=== PATIENT | female | born 1955 | race Caucasian/White ===

== ENCOUNTER 2016-06-12 09:40 | Inpatient (IN) | payer OTHER ==
[~2016-06-12] VITALS: Ht 170.2 cm; Wt 116.9 kg
--- NOTE | 2016-06-12 12:07 | DIAGNOSTIC IMAGING REPORT ---
PROCEDURE: XR CHEST 1 VIEW INDICATION: COUGH TECHNIQUE: Single view chest. 1147 hours COMPARISON: None FINDINGS: Mild patient rotation. Normal sized heart with post median sternotomy changes. Low lung volumes accentuates heart size and central vasculature. Mild peribronchial thickening. Thickening of the right minor fissure. Horizontal stranding at the left lung base. No dense consolidations. No significant effusion or pneumothorax. Intact osseous structures. IMPRESSION: 1. Peribronchial thickening and strandy left lung base opacity may reflect bronchitis, or may be accentuated secondary low lung volumes. 2. Postoperative heart.
--- NOTE | 2016-06-12 13:16 | ED ORDER SUMMARY ---
..... Patient: DAMI MEJIA OrderSheet [facility] VisitID: [id number] [address] [place] [address] 60y, F Registration Date/Time: 06/12/2016 ORDER SHEET Weight: 99.7 kg (stated) Allergies: Clonazepam, Ibuprofen GENERAL ORDERS: Chest 1V Urgent (11:06/12/2016 Rianna BONNER) (Ack 11:38 Neil) (12:17 MWinterer R.N.) Director Clinical Operations (Continuous) (:06/12/2016 Rianna BONNER) (11:32 MWinterer R.N.) UA-Culture if indicated Urgent (:06/12/2016 Rianna BONNER) (Ack 11:38 Neil) (12:07 JRomanelli R.N.) Cardiac Panel Stat (:06/12/2016 Rianna BONNER) (Ack 11:38 Neil) (12:17 MWinterer R.N.) BNP Urgent (:06/12/2016 Rianna BONNER) (Ack 11:38 Neil) (12:17 MWinterer R.N.) TSH Urgent (11:06/12/2016 Rianna BONNER) (Ack 11:38 Neil) (12:17 MWinterer R.N.) Pulse oximeter (:06/12/2016 Rianna BONNER) (11:32 MWinterer R.N.) EKG - ER Stat (:06/12/2016 Rianna BONNER) (Ack 11:32 MWinterer R.N.) (11:53 LTapper) MEDICATION ORDERS: IV FLUIDS: IV Saline Lock (11:06/12/2016 Rianna BONNER) (Ack 11:32 MWinterer R.N.) (12:17 MWinterer R.N.) Levaquin IV 500 mg/100mL (NOW) (13:08 06/12/2016 Rianna BONNER) (Ack 13:18 MWinterer R.N.) (13:34 MWinterer R.N.) Dilaudid IV 1 mg (HIGH ALERT MEDICATION, NOW) (14:47 06/12/2016 Rianna BONNER) (Ack 14:48 MWinterer R.N.) (14:52 MWinterer R.N.) ORDER SHEET NOTES: [Electronically signed by Susan Pantoja R.N. (17:49 06/12/2016)] [Electronically signed by Eloina Miller MD (04:51 06/17/2016)] [Electronically locked/signed by Susan Pantoja R.N. (17:49 06/12/2016)]
--- NOTE | 2016-06-12 13:16 | ED NURSING NOTES ---
Clinical Report - Nurses [place] [address] [place] [address] 06/12/2016 9:42 Patient: DAMI MEJIA TRIAGE Acuity: LEVEL 3. Chief Complaint: FATIGUE and VOMITING (PAIN). Alert. No acute distress. SEPSIS SCREEN: Sepsis Screen. Negative (no infection suspected/documented). BLAIR COMA SCORE: [place] Coma Scale: 15- eyes open spontaneously (4); best verbal response- oriented x 4 (5); best motor response- obeys commands (6). --09:53 Susan Pantoja R.N. 09:47 06/12/16. BP: 150/56. HR: 95. RR: 20. O2 saturation: 98% on room air. Temp: 99.9 F (oral). Pain level now: 810. --09:53 Susan Pantoja R.N. Weight: 99.7 kg stated. Height/Length: 67 inches Per Patient. BMI: 34.5. --09:53 Susan Pantoja R.N. Medications Oxybutynin Chloride ER Oral 5 mg, daily. --13:41 Susan Pantoja R.N. Copaxone Subcutaneous 40 mg , 3 x week (Mon, Wed, Fri). --13:42 Susan Pantoja R.N. NovoLOG FlexPen Subcutaneous. --13:42 Susan Pantoja R.N. Nystop External. --13:42 Susan Pantoja R.N. Omeprazole Oral 20 mg, daily. --13:43 Susan Pantoja R.N. Bisacodyl Laxative Rectal. --13:43 Susan Pantoja R.N. Calcitriol Oral (Capsule 0.25 mcg), daily. --13:44 Susan Pantoja R.N. BuPROPion HCl ER (SR) Oral 100 mg, daily. --13:45 Susan Pantoja R.N. Lantus Subcutaneous 28 units, daily. --13:46 Susan Pantoja R.N. DULoxetine HCl Oral. --13:46 Susan Pantoja R.N. HYDROmorphone HCl Oral 2 mg, as needed. --13:46 Susan Pantoja R.N. Warfarin Sodium Oral 9 mg , daily. --13:47 Susan Pantoja R.N. Ranitidine HCl Oral 150 mg, 2x a day. --13:49 Susan Pantoja R.N. Gabapentin Oral 100 mg, 3x a day. --13:49 Susan Pantoja R.N. Ondansetron HCl Oral (Tablet 4 mg), as needed. --13:51 Susan Pantoja R.N. Atorvastatin Calcium Oral 80 mg, at bedtime. --13:51 Susan Pantoja R.N. Metoprolol Tartrate Oral 25 mg, daily. --13:52 Susan Pantoja R.N. Baclofen Oral 10 mg, at bedtime. --13:53 Susan Pantoja R.N. Metoclopramide HCl Oral 5 mg, 3x a day. --13:53 Susan Pantoja R.N. Acetaminophen Oral, as needed. --13:54 Susan Pantoja R.N. Vitamin c Oral. --13:54 Susan Pantoja R.N. Aspirin Low Strength Oral, daily. --13:54 Susan Pantoja R.N. Docusate Sodium Oral. --13:55 Susan Pantoja R.N. Florastor Oral. --13:55 Susan Pantoja R.N. Multi Vitamin Daily Oral. --13:55 Susan Pantoja R.N. Senna Oral. --13:55 Susan Pantoja R.N. Tums Oral. --13:55 Susan Pantoja R.N. Vitamin B-12 Oral. --13:56 Susan Pantoja R.N. Vitamin D-3 Oral. --13:56 Susan Pantoja R.N. Allergies Clonazepam. --09:48 Susan Pantoja R.N. Ibuprofen. --09:49 Susan Pantoja R.N. History Arrived by EMS. Historian: patient. Unaccompanied. Primary physician (Yumiko). Onset. (1 weeks ago). PAST MEDICAL HX: The patient is post-menopausal. SOCIAL HX: Never smoker. No alcohol use or drug use. SKIN INTEGRITY ASSESSMENT: Skin integrity risk assessment was performed. Risk factors identified include restricted mobility. Skin breakdown noted on the coccyx and right heel. NUTRITIONAL RISK ASSESSMENT: The nutritional risk assessment revealed no deficiencies. LEARNING NEEDS ASSESSMENT: The learning needs assessment revealed no barriers. FUNCTIONAL ASSESSMENT: Functional assessment performed: requires assistance with the activities of daily living; uses wheelchair- this mobility impairment is an ongoing problem; has poor vision in both eyes and wears glasses- this visual impairment is an ongoing problem. --09:53 Susan Pantoja R.N. PROBLEMS: Multiple Sclerosis. Mitral valve disorder. Diabetes Mellitus. Hypertension. --09:50 Susan Pantoja R.N. Congestive Heart Failure. --13:57 Susan Pantoja R.N. ADDITIONAL SURGERIES: Amputation Below Knee. Gastric bypass. Mitral valuve replacement. --09:50 Susan Pantoja R.N. Assessment GENERAL / NEURO / PSYCH: Alert. Oriented X 4. Appears in no acute distress. Patient appears calm and cooperative. RESPIRATORY: Respirations not labored. CVS: Capillary refill less than 2 seconds. GI / : Abdomen soft and nontender. SKIN: Mucous membranes are pink. Skin is warm and dry. --09:53 Susan Pantoja R.N. Interventions ID band on patient. To treatment room. --09:53 Susan Pantoja R.N. PHYSICAL ASSESSMENT <<STRICKEN ENTRY-- 12:16 06/12/16. SKIN: Blisters noted on sacrum and right heel; pressure sore with damage down to fascia (Stage III) noted on sacrum; present on arrival. --12:16 Susan Pantoja R.N. --END STRIKE>> Correction --12:16 Susan Pantoja R.N. SKIN: Skin breakdown noted on sacrum; pressure sore with damage down to fascia (Stage III) noted on sacrum; present on arrival. --12:16 Susan Pantoja R.N. SKIN: Skin breakdown noted on right heel; present on arrival. --12:16 Susan Pantoja R.N. To room via stretcher. GENERAL / NEURO / PSYCH: Alert. Oriented X 4. Appears in no acute distress. HEENT: Pupils equal, round and reactive to light. No facial asymmetry noted. Mucous membranes are pink. RESPIRATORY: Respirations not labored. CVS: Normal sinus rhythm noted. Pulses within normal limits. GI / : Abdomen soft and nontender. SKIN: Skin is warm and dry. --12:17 Susan Pantoja R.N. NURSING PROGRESS NOTES Patient gowned. Warming measures: blanket applied. Two patient identifiers checked. Call light placed in reach. Side rails up x 2. Bed placed in lowest position. Brakes of bed on. Patient ready for evaluation- chart flagged and ED physician notified. --09:56 Susan Pantoja R.N. EKG time: (11:46 AM). EKG was performed by a tech and shown to the ED physician. --11:55 Eliel, Andrea 8 fr in/out catheterization. During procedure hand hygiene observed and sterile equipment and aseptic technique used. Return of 50 mL yellow-colored cloudy urine; odor is foul-smelling. Patient ID band checked for patient name and birthdate: patient confirmed. Instructions provided to collect clean catch urine and patient verbalized understanding. Catheterized urine collected with return of yellow-colored cloudy urine; sample sent to lab for urinalysis and culture. Specimen labeled in the presence of the patient. --12:04 Kenny Brothers R.N. ( pt cleanup x2 RNs X20 minutes.). --12:04 Kenny Brothers R.N. 12:12 06/12/2016 Site #1 started via IV in the right antecubital space with an 20g angiocath, with aseptic technique and good blood return; one attempt. Blood drawn: rainbow set. Labeled in the presence of the patient and sent to the lab. Saline lock flushed with 10 mL saline. --12:12 Susan Pantoja R.N. Applied clean dressing (mepilex dressing applied to sacrum). --12:15 Susan Pantoja R.N. 13:34 06/12/2016 Started 500 mg of Levaquin (Levofloxacin) IVPB in bag #1 100 mL; at 100 mL/hr over 1 hour(s) via site #1 via IV pump. Allergies verified and confirmed 5 rights. IV patency established. IV site checked: no pain, redness, or swelling. IV flushed thoroughly pre- and post-medication administration. --13:34 Susan Pantoja R.N. 14:06 06/12/16. Assisted patient with bedpan; tolerated well (x 2). --14:06 Susan Pantoja R.N. 14:13 06/12/16. BP: 121/45. HR: 90. RR: 18. O2 saturation: 96% on room air. --14:13 Susan Pantoja R.N. 14:52 06/12/2016 Dilaudid (HYDROmorphone HCl PF) IVP 1 mg given over 1 minute(s) via site #1. Allergies verified, confirmed 5 rights and sedative warning given to the patient. IV patency established. IV site checked: no pain, redness, or swelling. IV flushed thoroughly pre- and post-medication administration. IVP given by RN. --14:52 Susan Pantoja R.N. DISPOSITION / DISCHARGE 14:56 06/12/16. BP: 127/53. HR: 88. RR: 16. O2 saturation: 98% on room air. --14:58 Susan Pantoja R.N. Condition at departure: stable. Disposition: observation. Transported via stretcher by [employer]. Report was given to a nurse via a phone call. Report included patient's care, treatment, medications, reviewed medication reconcilliation, and condition (including any recent changes or anticipated changes). All questions were answered. Report was acknowledged and care was transferred. (FRANCIS De Oliveira). Patient's personal items include: glasses and cell phone; items were transported with the patient. --14:58 Susan Pantoja R.N. 14:35 06/12/2016 Levaquin IVPB Discontinued: bag #1 infused. Total amount infused: 100 mL. IV patency established. IV site checked: no pain, redness, or swelling. IV flushed thoroughly. --17:47 Susan Pantoja R.N. 15:25 06/12/2016 Site #[address] upon admission; patent and no pain. Flushed with 10 mL saline; flushes easily. --17:48 Susan Pantoja R.N. Locked/Released at 06/12/2016 17:49 by Susan Pantoja R.N.
--- NOTE | 2016-06-12 13:16 | ED CLINICAL REPORT ---
Clinical Report - Physicians/Mid Levels [facility] [address] [place] [address] 06/12/2016 9:42 Patient: DAMI MEJIA Time Seen: 10:25. Arrived- By private vehicle. Historian- patient. HISTORY OF PRESENT ILLNESS Chief Complaint: VOMITING. weakness. This started about 1 week ago and is still present and now worse. No recent travel. She has had nausea, vomiting and crampy abdominal pain. The pain is described as located in the lower abdomen. No diarrhea, black stools, bloody stools, constipation or flank pain. No history of possible bad food exposure, known contact with a sick individual or change in routine. Has not recently been camping or on antibiotics. The illness is described as moderate. (PT states she has been increasingly fatigued. She is currently living at home, and is assisted by her adult daughter, after a complicated course, following a femur fx last year. Daughter states that the pt was previously able to get herself up out of bed on her own, but now, cannot. Daughter states it is a struggle for her to get her mom up.). Similar symptoms previously: None. Recent medical care: The patient was seen recently at another facility. ( PT has been followed for ongoing issues with a nonhealing sacral ulcer.). REVIEW OF SYSTEMS No fever, muscle aches, difficulty with urination, dark urine or headache. No dizziness, sore throat, cough, chest pain or difficulty breathing. No excessive urination, skin rash, back pain, fainting episodes or blurred vision. All systems otherwise negative, except as recorded above. PAST HISTORY Problems: Congestive Heart Failure. Multiple Sclerosis. Mitral valve disorder. Diabetes Mellitus. Hypertension. Additional Surgeries: Amputation Below Knee. Gastric bypass. Mitral valuve replacement. Medications: Vitamin D-3 Oral. Vitamin B-12 Oral. Tums Oral. Senna Oral. Multi Vitamin Daily Oral. Florastor Oral. Docusate Sodium Oral. Aspirin Low Strength Oral, daily. Vitamin c Oral. Acetaminophen Oral, as needed. Metoclopramide HCl Oral 5 mg, 3x a day. Baclofen Oral 10 mg, at bedtime. Metoprolol Tartrate Oral 25 mg, daily. Atorvastatin Calcium Oral 80 mg, at bedtime. Ondansetron HCl Oral (Tablet 4 mg), as needed. Gabapentin Oral 100 mg, 3x a day. Ranitidine HCl Oral 150 mg, 2x a day. Warfarin Sodium Oral 9 mg , daily. HYDROmorphone HCl Oral 2 mg, as needed. DULoxetine HCl Oral. Lantus Subcutaneous 28 units, daily. BuPROPion HCl ER (SR) Oral 100 mg, daily. Calcitriol Oral (Capsule 0.25 mcg), daily. Bisacodyl Laxative Rectal. Omeprazole Oral 20 mg, daily. Nystop External. NovoLOG FlexPen Subcutaneous. Copaxone Subcutaneous 40 mg , 3 x week (Mon, Wed, Mon). Oxybutynin Chloride ER Oral 5 mg, daily. Allergies: Clonazepam. Ibuprofen. SOCIAL HISTORY Never smoker. No alcohol use or drug use. ADDITIONAL NOTES The nursing notes have been reviewed. PHYSICAL EXAM Vital Signs: 06/12/2016 09:47 BP: 150/56. HR: 95. RR: 20. O2 saturation: 98%. Temp: 99.9 F. Pain level now: 8/10. Have been reviewed. Appearance: Alert. Oriented X3. No acute distress. Eyes: Pupils equal, round and reactive to light. Eyes normal inspection. ENT: Nose normal. Neck: Normal inspection. Neck supple. CVS: Normal heart rate and rhythm. Heart sounds normal. Pulses normal. Respiratory: No respiratory distress. Breath sounds normal. Abdomen: Soft. Mild tenderness diffusely. No guarding or rebound tenderness. Severely obese. Back: Normal inspection. No CVA tenderness. (Pt has a weepy, somewhat foul-smelling, pre-sacral ulcer, which does not appear gangrenous. No cellulitis. No purulent drainage.). Skin: Skin warm and dry. Normal skin color. No rash. Normal skin turgor. Extremities: No lower extremity edema. Neuro: Oriented X 3. No motor deficit. No sensory deficit. LABS, X-RAYS, AND EKG Chest X-ray: No acute disease. Normal lung markings present. Normal heart size. Mediastinum normal. Great vessels normal. Soft tissues normal. No infiltrate. No fracture. No bony lesion present. Views: AP (portable). Technique: good. The X-rays were independently viewed by me and interpreted contemporaneously by me. Prior films were not available for comparison. Laboratory Tests: UA-Culture if indicated: (NIKOLAS: 06/12/2016 12:00) ( MsgRcvd 06/12/2016 12:23) Final results Test Result Flag Units (Reference) URINE COLOR YELLOW URINE APPEARANCE SL CLOUDY URINE GLUCOSE NEGATIVE (NEGATIVE) URINE BILIRUBIN NEGATIVE (NEGATIVE) URINE KETONE NEGATIVE (NEGATIVE) URINE SPECIFIC GRAVITY 1.025 (1.010-1.030) URINE PH 5.5 (5.0-8.0) URINE PROTEIN 1+ (NEGATIVE) URINE UROBILINOGEN 0.2 EU/dL (0.2-1.0) URINE NITRITE POSITIVE (NEGATIVE) URINE BLOOD 2+ (NEGATIVE) URINE LEUK ESTERASE POSITIVE (NEGATIVE) URINE RBC 1-3 rbc/hpf (0-1) URINE WBC 5-10 wbc/hpf (0-1) URINE EPITHELIAL CELLS 1-3 EPI/hpf (0-5) URINE BACTERIA MODERATE (2+ TO 3+) (NONE SEEN) URINE COMMENT CULTURE INDICATED URINE CULTURES ARE SET-UP BASED ON THE FOLLOWING CRITERIA:POSITIVE NITRITEPOSITIVE LEUKOCYTE ESTERASEGREATER THAN 10 WHITE BLOOD CELLSMODERATE (2+) OR GREATER BACTERIA CBC w Diff: (NIKOLAS: 06/12/2016 12:05) ( MsgRcvd 06/12/2016 12:40) Final results Test Result Flag Units (Reference) WHITE BLOOD COUNT 12.0 H K/uL (4.5-11.5) RED BLOOD COUNT 2.91 L M/uL (4.00-5.20) HEMOGLOBIN 8.8 L gm/dL (12.0-16.0) HEMATOCRIT 27.3 L % (36.0-46.0) MEAN CELL VOLUME 94 fL (80-100) MEAN CORPUSCULAR HGB 30 pg (26-34) MEAN CORPUSCULAR HGB CONC 32 g/dL (31-37) RED CELL DISTRIBUTION WIDTH 13.6 % (11.6-14.8) PLATELET COUNT 305 K/uL (150-400) NEUTROPHIL % 87.9 H % (50-75) LYMPH % 4.8 L % (25-40) MONO % 7.1 % (3-14) EOSINOPHIL % 0 % (0-4) BASOPHIL % 0.2 % (0-2) BNP: (NIKOLAS: 06/12/2016 12:05) ( [facility] [place]/12[place] 13:04) Final results Test Result Flag Units (Reference) B-TYPE NATRIURETIC PEPTIDE 707 H pg/ml (5-100) CHEM 13 PANEL: (NIKOLAS: 06/12/2016 12:05) ( [facility] [place] 06/12/2016 12:48) IP Test Result Flag Units (Reference) GLUCOSE 237 H mg/dL (70-110) BUN 45 H mg/dL (7-18) CREATININE 1.3 mg/dL (0.6-1.3) Estimated GFR 44.71 mL/min Estimated GFR- 54.19 mL/min Note: Persistent reduction over 3 months in eGFR<60 mL/min/1.73 m2 defines CKD. Patients with eGFR values>=60 mL/min/1.73 m2 may also have CKD if evidence ofpersistent proteinuria. Additional information may be foundat www.kidney.org. SODIUM 142 mmol/L (136-145) POTASSIUM 4.3 mmol/L (3.5-5.1) CHLORIDE 107 mmol/L (98-107) CARBON DIOXIDE 22 mmol/L (21-32) CALCIUM 8.8 mg/dL (8.5-10.1) . Pulse Oximetry: 06/12/2016 09:47 O2 saturation: 98%. Interpretation: normal. PROGRESS AND PROCEDURES Course of Care: PT was treated symptomatically, and worked up for her nausea and weakness, and found to have a UTI. Pt was started on treatment for this in the ED, but family stated they could not take her home, as they could not care for her. I did arrange for admission for the pt. Patient counseled in person regarding the patient's stable condition, test results, diagnosis and need for admission. Concerns were addressed. Old medical records reviewed. Disposition: Admitted to Acute Care. Condition: stable. CLINICAL IMPRESSION Acute urinary tract infection with cystitis. Morbid obesity (BMI >=40). Fatigue and generalized weakness, secondary to acute illness and chronic deconditioning. (Electronically signed by Eloina Miller MD 06/17/2016 4:51)
--- NOTE | 2016-06-12 13:16 | ED ORDER SUMMARY ---
..... Patient: DAMI MEJIA OrderSheet [facility] VisitID: [id number] [address] [place] [address] 60y, F Registration Date/Time: 06/12/2016 ORDER SHEET Weight: 99.7 kg (stated) Allergies: Clonazepam, Ibuprofen GENERAL ORDERS: Chest 1V Urgent (11:06/12/2016 Rianna BONNER) (Ack 11:38 Neil) (12:17 MWinterer R.N.) Local Truck [employer] (Continuous) (:06/12/2016 Rianna BONNER) (11:32 MWinterer R.N.) UA-Culture if indicated Urgent (:06/12/2016 Rianna BONNER) (Ack 11:38 Neil) (12:07 JRomanelli R.N.) Cardiac Panel Stat (:06/12/2016 Rianna BONNER) (Ack 11:38 Neil) (12:17 MWinterer R.N.) BNP Urgent (:06/12/2016 Rianna BONNER) (Ack 11:38 Neil) (12:17 MWinterer R.N.) TSH Urgent (11:06/12/2016 Rianna BONNER) (Ack 11:38 Neil) (12:17 MWinterer R.N.) Pulse oximeter (:06/12/2016 Rianna BONNER) (11:32 MWinterer R.N.) EKG - ER Stat (:06/12/2016 Rianna BONNER) (Ack 11:32 MWinterer R.N.) (11:53 LTapper) MEDICATION ORDERS: IV FLUIDS: IV Saline Lock (11:06/12/2016 Rianna BONNER) (Ack 11:32 MWinterer R.N.) (12:17 MWinterer R.N.) Levaquin IV 500 mg/100mL (NOW) (13:08 06/12/2016 Rianna BONNER) (Ack 13:18 MWinterer R.N.) (13:34 MWinterer R.N.) Dilaudid IV 1 mg (HIGH ALERT MEDICATION, NOW) (14:47 06/12/2016 Rianna BONNER) (Ack 14:48 MWinterer R.N.) (14:52 MWinterer R.N.) ORDER SHEET NOTES: [Electronically signed by Susan Pantoja R.N. (17:49 06/12/2016)] [Electronically signed by Eloina Miller MD (04:51 06/17/2016)] [Electronically locked/signed by Susan Pantoja R.N. (17:49 06/12/2016)]
--- NOTE | 2016-06-12 14:15 | History & Physical Report ---
Admission Admit Date 06/12/16 Information Source Information Source: Self, ED Record History Chief Complaint General weakness, nausea, vomiting. History of Present Illness 60yoF w/ hx of MS, CHF, DM, HTN, and LLE amputation s/p complications after surgery for a femur fracture, who presents with 1 month of worsening generalized weakness as well as 1 week of inability to tolerate PO. Patient was discharged from rehab about a month ago, and had been doing pretty well with transfers. However, she now feels that her arms and legs are weak, and she is requiring basically full assistance with transfers. She had a respiratory infection a little over a week ago w/ nonproductive cough, and she had been feeling better. However, she then developed nausea and vomiting every time she tries to eat. She has not been able to keep anything down this week. She also notes occasional bladder "spasms" over the past few days, but no abdominal pain. She also endorses feeling more "puffy" lately, and says that this is usually the first sign of a CHF exacerbation. Patient History 1. Multiple sclerosis 2. HTN (hypertension) 3. CHF (congestive heart failure) 4. Diabetes 5. Sacral decubitus ulcer 6. Status post below knee amputation of left lower extremity Social History Denies etoh, tobacco, drug use. Medications and Allergies Medications Current Medications Sig/Latonia Start time Last Medication Dose Route Stop Time Status Admin Enoxaparin Sodium 40 MG QAM 06/13 0900 UNV SC Levofloxacin/Dextrose 100 ML DAILY 06/13 0900 UNV IV Furosemide 40 MG BID 06/12 2100 UNV IV Insulin Human Lispro See Dose ACHS 06/12 1630 UNi Insts (1) SC Acetaminophen 650 MG Q6H PRN 06/12 1400 UNV PO Docusate Sodium 250 MG BID PRN 06/12 1400 UNV PO Hydromorphone HCl 1 MG Q1H PRN 06/12 1400 UNV IV Ondansetron HCl 4 MG Q6H PRN 06/12 1400 UNV IV Dose Instructions: (1)Insulin Human Lispro: LOW DOSE SLIDING SCALE Allergies Coded Allergies: NKA (06/12/16) Review of Systems Other As per HPI, rest of 10-point ROS notable for chronic presacral decubitus ulcer that she goes to wound care for. Physical Exam General Appearance Alert, Oriented X3, Cooperative, Mild distress, Morbidly obese HEENT Atraumatic, EOMI, Moist mucous membranes Lungs Diffuse expiratory wheezing, no crackles Neck Supple Cardiovascular Regular rate and rhythm, Normal S1 and S2, No murmurs, gallops, rubs Abdomen Normal bowel sounds, Soft, No tenderness Extremities 1+ LE edema in RLE. Skin sacral decubitus ulcer bandaged Neurological cn intact, strength 5/5 in all extremities except for knee flexion in RLE which was 4-/5. Sensation intact throughout. Psych/Mental Status Mental status normal, Tearful LAB Results Laboratory Tests 06/12 06/12 06/12 1205 1205 1200 Chemistry Plasma Sodium (136 - 145 mmol/L) 142 Plasma Potassium (3.5 - 5.1 mmol/L) 4.3 Plasma Chloride (98 - 107 mmol/L) 107 CO2 (Enzymatic) (21 - 32 mmol/L) 22 BUN (7 - 18 mg/dL) 45 Creatinine (0.6 - 1.3 mg/dL) 1.3 Est GFR ( Amer) (mL/min) 54.19 Est GFR (Non-Af Amer) (mL/min) 44.71 Glucose (70 - 110 mg/dL) 237 Plasma Calcium (8.5 - 10.1 mg/dL) 8.8 Plasma Magnesium (1.8 - 2.4 mg/dL) 1.7 Total Bilirubin (0.0 - 1.0 mg/dL) 0.3 AST (15 - 37 U/L) 29 ALT (12 - 78 U/L) 20 Alkaline Phosphatase (46 - 116 U/L) 84 Creatine Kinase (24 - 260 U/L) 326 CK-MB (CK-2) (0.5 - 3.2 ng/mL) 1.8 CK/CKMB % Calc (0.0 - 4.0 %) 0.6 Troponin (0.00 - 1.5 ng/mL) <0.05 B-Natriuretic Peptide (5 - 100 pg/ml) 707 Total Protein (6.4 - 8.2 g/dL) 6.5 Albumin (3.3 - 5.0 g/dL) 2.3 TSH 3rd Generation (0.30 - 3.74 uIU/mL) 1.025 Hematology WBC (4.5 - 11.5 K/uL) 12.0 RBC (4.00 - 5.20 M/uL) 2.91 Hgb (12.0 - 16.0 gm/dL) 8.8 Hct (36.0 - 46.0 %) 27.3 MCV (80 - 100 fL) 94 MCH (26 - 34 pg) 30 RDW (11.6 - 14.8 %) 13.6 Neut % (Auto) (50 - 75 %) 87.9 Lymph % (Auto) (25 - 40 %) 4.8 [place] % (Auto) (3 - 14 %) 7.1 Eos % (Auto) (0 - 4 %) 0 Baso % (Auto) (0 - 2 %) 0.2 Plt Count, EDTA (150 - 400 K/uL) 305 PUBS MCHC (31 - 37 g/dL) 32 Urines Urine Color YELLOW Urine Appearance SL CLOUDY Urine pH (5.0 - 8.0) 5.5 Ur Specific [place] (1.010 - 1.030) 1.025 Urine Protein (NEGATIVE) 1+ Urine Ketones (NEGATIVE) NEGATIVE Urine Blood (NEGATIVE) 2+ Urine Nitrite (NEGATIVE) POSITIVE Urine Bilirubin (NEGATIVE) NEGATIVE Urine Urobilinogen (0.2 - 1.0 EU/dL) 0.2 Ur Leukocyte Esterase (NEGATIVE) POSITIVE Urine RBC (0 - 1 rbc/hpf) 1-3 Urine WBC (0 - 1 wbc/hpf) 5-10 Ur Epithelial Cells (0 - 5 EPI/hpf) 1-3 Urine Bacteria (NONE SEEN) MODERATE (2+ TO 3+) Urine Glucose (NEGATIVE) NEGATIVE Urine Comment CULTURE INDICATED 06/12 1126 Chemistry TSH 3rd Generation Cancelled Microbiology Date/Time Procedure - Status Source Growth 06/12 1200 Urine Culture - RECD URINE CATH Assessment and Plan Problem List 1. UTI (urinary tract infection) Plan Will continue on levaquin (day 1). Will follow up urine culture for speciation and sensitivities. 2. Acute decompensated heart failure Plan Slightly fluid overload, and does state that these symptoms are c/w previous exacerbations. Will place on IV lasix, w/ goal -500-1000cc in next 24hrs. Unclear if patient has systolic or diastolic dysfunction as there are no records in our system. 3. Acute bronchitis Plan CXR noting evidence of peribronchial thickening in L lung base. Did have recent viral infection, but should be covered with the levaquin as well. 4. Generalized weakness Plan Unclear if this is due to her current UTI, which may be causing her nausea/ vomiting and inability to take PO. Will place on PRN zofran and start with clear liquids. Will monitor for improvement in her PO intake. If still having issues despite adequate treatment of her infection, may consider gastric emptying study due to her diabetes history. In addition, her exam does not seem c/w an MS flare, and she likely has some deconditioning. Will consult PT as well to evaluate the patient. 5. Multiple sclerosis Plan Does not appear to be in an acute flare. Is followed by a Dr. Cruz at [facility]. Reconciling medications at this time. 6. Sacral decubitus ulcer Plan Will consult wound care. 7. HTN (hypertension) Plan Patient does not recall home medications. Trying to obtain list from pharmacy. 8. Diabetes Plan Will place on SSI for now until meds can be reconciled with her pharmacy. FEN: clears, and will ADAT PPx: lovenox Code: DNR/DNI, per discussion w/ patient in ED Dispo: Inpatient for above, as will likely require >2MN hospital stay. PT consulted, as she may require another stay in rehab when medically stable. E&M Codes Admission: Inpt-High/[id number]
[2016-06-12] MEDS ORDERED: [UNRECOGNIZED DRUG - OTHER] (14:59)
[2016-06-12] MEDS ORDERED: LIPITOR80 MG PO (14:59)
[2016-06-12] MEDS ORDERED: ASPIRIN 81 LOW81 MG PO (14:59)
[2016-06-12] MEDS ORDERED: BACLOFEN10 MG PO (15:00)
[2016-06-12] MEDS ORDERED: BISACODYL5 MG (15:00)
[2016-06-12] MEDS ORDERED: BUPROPION HCL100 M2 PO (15:00)
[2016-06-12] MEDS ORDERED: CALCITRIOL0.25 MCG PO (15:01)
[2016-06-12] MEDS ORDERED: COPAXONE20 MG/ML SC (15:02)
[2016-06-12] MEDS ORDERED: FLORASTOR250 MG (15:03)
[2016-06-12] MEDS ORDERED: [UNRECOGNIZED DRUG - OTHER] (15:03)
[2016-06-12] MEDS ORDERED: CYMBALTA20 MG PO (15:03)
[2016-06-12] MEDS ORDERED: GABAPENTIN100 MG (15:04)
[2016-06-12] MEDS ORDERED: HYDROMORPHONE HC2 MG PO (15:04)
[2016-06-12] MEDS ORDERED: LANTUS SOL100 UNITS/ SC (15:05)
[2016-06-12] MEDS ORDERED: METOCLOPRAMIDE10 MG PO (15:06)
[2016-06-12] MEDS ORDERED: LOPRESSOR25 MG PO (15:06)
[2016-06-12] MEDS ORDERED: [UNRECOGNIZED DRUG - OTHER] (15:07)
[2016-06-12] MEDS ORDERED: NYSTOP100000 MG TOP (15:07)
[2016-06-12] MEDS ORDERED: NOVOLOG PE100 UNITS/ (15:07)
[2016-06-12] MEDS ORDERED: OMEPRAZOLE20 M1 (15:08)
[2016-06-12] MEDS ORDERED: ONDANSETRON ODT4 MG PO (15:08)
[2016-06-12] MEDS ORDERED: OXYBUTYNIN CHLOR5 M1 PO (15:09)
[2016-06-12] MEDS ORDERED: [UNRECOGNIZED DRUG - OTHER] (15:09)
[2016-06-12] MEDS ORDERED: SENNA-LAX8.6 MG PO (15:09)
[2016-06-12] MEDS ORDERED: VITAMIN C500 M1 PO (15:10)
[2016-06-12] MEDS ORDERED: TUMS500 MG (15:10)
[2016-06-12] MEDS ORDERED: VITAMIN B 12100 MCG (15:10)
[2016-06-12] MEDS ORDERED: COUMADIN5 MG PO (15:11)
[2016-06-12] MEDS ORDERED: VITAMIN D-31000 UNIT PO (15:11)
[2016-06-12 16:35] VITALS: BP 125/59
[2016-06-12] MEDS ORDERED: BUMETANIDE1 MG PO (18:36)
[2016-06-12 18:57] VITALS: BP 126/39
[2016-06-12 23:00] VITALS: BP 95/50
[2016-06-13 02:32] VITALS: BP 121/45
[2016-06-13 07:16] VITALS: BP 159/59
--- NOTE | 2016-06-13 10:32 | Progress Note ---
Subjective General Feels a little bit better today. No emesis in the past 24hrs. Did ok with liquids last night, and trying soft foods this morning. States she just does not have much of an appetite, but is not necessarily nauseated at this time. No fevers. Physical Exam Vital Signs / I&Os Vital Signs Date Time Temp Pulse Resp B/P Pulse O2 O2 Flow FiO2 Ox Delivery Rate 06/13 0716 100.2 97 26 159/59 92 Room Air 0.0 06/13 0232 100.0 86 20 121/45 93 Room Air 06/12 2300 99.7 83 20 95/50 95 Room Air 06/12 1857 98.8 92 20 126/39 96 Room Air 06/12 1635 98.8 87 20 125/59 97 Room Air I&O 06/13 0000 06/12 1600 06/12 0800 Intake Total Output Total Balance General Appearance Alert, Oriented X3, Cooperative, No acute distress, Obese HEENT Moist mucous membranes Lungs Still with some expiratory wheezing, improved from yesterday. No crackles. Neck Supple Cardiovascular Regular rate and rhythm, Normal S1 and S2, Audible mechanical valve, even w/o stethoscope. Abdomen Normal bowel sounds, Soft, No tenderness Extremities 1+ RLE swelling Skin No Rashes Neurological No lateralizing signs Psych/Mental Status Mental status normal, Mood normal LAB Results Laboratory Tests 06/13 06/12 06/12 06/12 0548 1715 1205 1205 Chemistry Plasma Sodium (136 - 145 mmol/L) 144 142 Plasma Potassium (3.5 - 5.1 mmol/L) 4.5 4.3 Plasma Chloride (98 - 107 mmol/L) 111 107 CO2 (Enzymatic) (21 - 32 mmol/L) 25 22 BUN (7 - 18 mg/dL) 40 45 Creatinine (0.6 - 1.3 mg/dL) 1.3 1.3 Est GFR ( Amer) (mL/min) 54.19 54.19 Est GFR (Non-Af Amer) (mL/min) 44.71 44.71 Glucose (70 - 110 mg/dL) 167 237 Plasma Calcium (8.5 - 10.1 mg/dL) 8.5 8.8 Plasma Magnesium (1.8 - 2.4 mg/dL) 1.7 1.7 Total Bilirubin (0.0 - 1.0 mg/dL) 0.3 AST (15 - 37 U/L) 29 ALT (12 - 78 U/L) 20 Alkaline Phosphatase (46 - 116 U/L) 84 Creatine Kinase (24 - 260 U/L) 326 CK-MB (CK-2) (0.5 - 3.2 ng/mL) 1.8 CK/CKMB % Calc (0.0 - 4.0 %) 0.6 Troponin (0.00 - 1.5 ng/mL) <0.05 B-Natriuretic Peptide (5 - 100 pg/ml) 707 Total Protein (6.4 - 8.2 g/dL) 6.5 Albumin (3.3 - 5.0 g/dL) 2.3 TSH 3rd Generation (0.30 - 3.74 uIU/mL) 1.025 Coagulation INR (0.8 - 1.2) 2.8 2.3 Hematology WBC (4.5 - 11.5 K/uL) 11.7 12.0 RBC (4.00 - 5.20 M/uL) 2.48 2.91 Hgb (12.0 - 16.0 gm/dL) 7.4 8.8 Hct (36.0 - 46.0 %) 23.1 27.3 MCV (80 - 100 fL) 93 94 MCH (26 - 34 pg) 30 30 RDW (11.6 - 14.8 %) 13.6 13.6 Neut % (Auto) (50 - 75 %) 87.4 87.9 Lymph % (Auto) (25 - 40 %) 5.8 4.8 [place] % (Auto) (3 - 14 %) 6.7 7.1 Eos % (Auto) (0 - 4 %) 0 0 Baso % (Auto) (0 - 2 %) 0.1 0.2 Plt Count, EDTA (150 - 400 K/uL) 211 305 PUBS MCHC (31 - 37 g/dL) 32 32 06/12 06/12 1200 1126 Chemistry TSH 3rd Generation Cancelled Urines Urine Color YELLOW Urine Appearance SL CLOUDY Urine pH (5.0 - 8.0) 5.5 Ur Specific [place] (1.010 - 1.030) 1.025 Urine Protein (NEGATIVE) 1+ Urine Ketones (NEGATIVE) NEGATIVE Urine Blood (NEGATIVE) 2+ Urine Nitrite (NEGATIVE) POSITIVE Urine Bilirubin (NEGATIVE) NEGATIVE Urine Urobilinogen (0.2 - 1.0 EU/dL) 0.2 Ur Leukocyte Esterase (NEGATIVE) POSITIVE Urine RBC (0 - 1 rbc/hpf) 1-3 Urine WBC (0 - 1 wbc/hpf) 5-10 Ur Epithelial Cells (0 - 5 EPI/hpf) 1-3 Urine Bacteria (NONE SEEN) MODERATE (2+ TO 3+) Urine Glucose (NEGATIVE) NEGATIVE Urine Comment CULTURE INDICATED Microbiology Date/Time Procedure - Status Source Growth 06/12 1650 MRSA Screen - RECD NASAL 06/12 1200 Urine Culture - RECD URINE CATH Assessment and Plan Problem List 1. UTI (urinary tract infection) Plan Continuing levaquin (day 2) and will follow up culture. Will see if this helps improve her nausea and appetite. 2. Acute decompensated heart failure Plan Patient incontinent of urine, which make monitoring her diuresis a bit difficult. Symptoms a bit better today with lasix IV yesterday. Will continue for now, and will monitor by symptoms as I do not want to place a osborne due to her UTI. 3. Acute bronchitis Plan Continuing on levaquin as well, based on CXR results on admission. 4. Generalized weakness Plan Energy feels a little bit better, so may be related to the UTI. Will have PT evaluate her. 5. Multiple sclerosis Plan Not in an acute flare. Continue her glatiramer 3x/week. 6. Sacral decubitus ulcer Plan Continue wound care. 7. Diabetes Plan Continue 1/2 dose lantus +SSI and titrate as needed. 8. Chronic pain Plan Continuing home cymbalta, baclofen, gabapentin. 9. Depression Plan Continue bupropion. 10. GERD (gastroesophageal reflux disease) Plan Continue PPI and H2 adi. 11. H/O mitral valve replacement with mechanical valve Plan Continue coumadin w/ INR goal 2.5-3.5. FEN: ADAT PPx: on coumadin Code: DNR/DNI Dispo: Pending ability to reliably tolerate PO and PT eval for dispo assistance. E&M Codes Rounding: Inpt-High/[id number]
[2016-06-13 11:19] VITALS: BP 134/59
[2016-06-13 14:50] VITALS: BP 132/60
--- NOTE | 2016-06-13 16:17 | CONSULTATION REPORT ---
DATE OF CONSULTATION: 06/13/2016 CHIEF COMPLAINT: 1. Pressure ulcer, presacral HISTORY OF PRESENT ILLNESS: The patient is a 60-year-old woman who was just admitted to the hospital by the medicine service. She was noted to have a foul-smelling exudate from her presacral region and was found to have a necrotic pressure ulcer. Consultation was obtained for helping to manage the wound. This patient has a past medical history of multiple sclerosis and general weakness, CHF, diabetes, hypertension, and has had a left lower extremity amputation for complications following surgery for a femur fracture. On this occasion, she was admitted and found to have a UTI and pneumonia, as well as the pressure ulcer in question. She has longstanding bladder problems. MEDICAL/SURGICAL HISTORY: Medical history: Diseases mentioned above. MEDICATIONS: 1. Enoxaparin 2. Levofloxacin 3. Lasix 4. Human insulin 5. Acetaminophen 6. DOS 7. Hydromorphone 8. Ondansetron ALLERGIES: 1. NONE TO MEDICATIONS. SOCIAL HISTORY: The patient does not drink or smoke cigarettes. FAMILY HISTORY: No specific hereditary diseases are noted. REVIEW OF SYSTEMS: A review of systems was obtained on admission yesterday by the internal medicine service, covering at least 10 points. PHYSICAL EXAMINATION: GENERAL: The patient was alert and cooperative. VITAL SIGNS: Her most recent vital signs: Temperature 98.6, pulse 78, blood pressure 132/60, respirations 20. GENERAL: The patient appeared alert and cooperative and was conversant. HEENT: Her ears and nose demonstrated no gross external lesions. Eyes were equal. There is no obvious icterus. NECK: Without palpable masses. BUTTOCKS: Her bottom and was examined. She does have pain in this area and sensation. There is necrotic opening, about 2 x 3 cm, in the presacral region, with foul- smelling serous drainage. There is also induration, especially in the right gluteal crease. There is no crepitus. There is moderate erythema. LAB/IMAGING: Her lab tests show a white count of 11.7, which was 12 yesterday. Coag studies: INR of 2.8. Glucose 237 yesterday and 167 today. IMPRESSION: 1. Presacral pressure ulcer 2. Sensory neuropathy PLAN: I recommended the patient undergo a bedside opening, excisional debridement. She was already being followed in Wound Care and will be followed up further there, depending on what the findings are. PROCEDURE: Incision, drainage, and debridement of presacral pressure ulcer. The wound was treated at the bedside. No injectable anesthetics were used, and the patient had some discomfort with opening up loculations, but otherwise did fine. The patient was rolled in the left lateral decubitus position and a Q-tip inserted until a deeper cavity was found, with some return of purulent and serous fluid. A disposable scissors as well as scalpel blade were used to excise a plug of necrotic, foul- smelling skin and full-thickness subcutaneous tissue, which allowed entrance to the openings. Digital dilation was used to break up loculations, both on the right and the left side. There was no ongoing bleeding, and the wound was packed with plain gauze on both sides and t.i.d. moist saline dressings were ordered. This represents excisional debridement of both skin and subcutaneous tissue in a wound externally measuring about 2 x 3 cm and internally tunneling at least 4 cm.
[2016-06-13 19:06] VITALS: BP 125/66
[2016-06-13 22:32] VITALS: BP 150/56
[2016-06-14] VITALS (7 sets, daily range): BP systolic 114–134; BP diastolic 48–77
--- NOTE | 2016-06-14 08:47 | Progress Note ---
Subjective General Note Date: June 14, 2016 Admission Date: June 13, 2016 Hospital Day: 2 PCP: None Status: Inpatient Advanced Directive: NO CODE Room: 208 Brief History: The patient is a 60-year-old white female with a significant past medical history of multiple sclerosis, hypertension, diabetes mellitus, who presented to [facility] emergency department on the day of admission secondary to complaints of generalized weakness nausea and vomiting. ER evaluation was consistent with UTI , bronchitis, and sacral decubitus ulcer. Secondary to the above, the patient was admitted by Ana Vang M.D. for further evaluation and treatment. For other history present illness, past medical history, family history, social history, review of systems, and admission physical examination please see the patient's history and physical examination and ER visit note in the patient's medical record. Subjective: The patient states she is doing somewhat better today. Persistent generalized weakness. No specific complaints or requests at this time Patient requests: None Medications and Allergies Medications Current Medications Sig/Lat[place] Start time Last Medication Dose Route Stop Time Status Admin Zinc Sulfate 220 MG QAM 06/14 899 AC 06/14 PO 0815 Clarify Med Order See Dose ASDIRECTED 06/13 1245 AC Insts (1) PO Ascorbic Acid 500 MG DAILY 06/13 899 AC 06/14 PO 0815 Aspirin 81 MG DAILY 06/13 899 AC 06/14 PO 0815 Calcitriol 0.25 MCG DAILY 06/13 899 AC 06/14 PO 0815 Cholecalciferol 1,000 UNIT DAILY 06/13 09 AC 06/14 PO 0815 Duloxetine HCl 30 MG DAILY 06/13 09 AC 06/14 PO 0815 Insulin Glargine 15 UNITS DAILY 06/13 09 AC 06/14 SC 0815 Levofloxacin/Dextrose 100 ML DAILY 06/13 09 AC 06/13 IV 0938 Oxybutynin Chloride 5 MG DAILY 06/13 09 AC 06/14 PO 0815 Patient Own See Dose MoWeFr 06/13 09 AC 06/13 Medication Insts (2) SC 0938 Senna 1 TAB DAILY 06/13 09 AC 06/14 PO 0815 Clarify Med Order See Dose ASDIRECTED 06/13 08 AC Insts (3) PO Clotrimazole See Dose QID 06/13 06 AC 06/14 Insts (4) TOP 0546 Pantoprazole Sodium 40 MG DAILY@0600 06/13 0600 AC 06/14 Sesquihydrate PO 0546 Gabapentin 100 MG TID 06/12 2200 AC 06/14 PO 0546 Baclofen 10 MG BID 06/12 2100 AC 06/14 PO 0815 Bupropion HCl 100 MG BID 06/12 2100 AC 06/14 PO 0815 Famotidine 20 MG DAILY 06/12 2100 AC 06/14 PO 0815 Metoclopramide HCl 5 MG ACHS 06/12 2100 AC 06/14 PO 0808 Warfarin Sodium 4 MG 1400 06/12 2000 AC 06/13 PO 1451 Warfarin Sodium 5 MG 1400 06/12 2000 AC 06/13 PO 1451 Atorvastatin Calcium 80 MG QPM 06/12 1800 AC 06/13 PO 1823 Furosemide 40 MG DIUB 06/12 1800 AC 06/14 IV 0547 Metoprolol Tartrate 25 MG DAILY 06/12 1800 AC 06/14 PO 0815 Insulin Human Lispro See Dose ACHS 06/12 1630 AC 06/14 Insts (5) SC 0814 Acetaminophen 650 MG Q6H PRN 06/12 1400 AC 06/14 PO 0808 Docusate Sodium 250 MG BID PRN 06/12 1400 AC 06/12 PO 2059 Hydromorphone HCl 1 MG Q1H PRN 06/12 1400 AC 06/13 IV 1551 Ondansetron HCl 4 MG Q6H PRN 06/12 1400 AC 06/13 IV 0659 Dose Instructions: (1)Clarify Med Order: WARFARIN PER PHARM (2)Patient Own Medication: GLATIRAMER 40 MG (3)Clarify Med Order: PT MEDS IN PSB (OMNICELL) (4)Clotrimazole: APPLY TO AFFECTED AREA (5)Insulin Human Lispro: LOW DOSE SLIDING SCALE Allergies Coded Allergies: Clonazepam (06/12/16) Ibuprofen (06/12/16) Lactose Intolerance (GI) (06/13/16) Physical Exam Vital Signs / I&Os Vital Signs Date Time Temp Pulse Resp B/P Pulse O2 O2 Flow FiO2 Ox Delivery Rate 06/14 0641 98.8 81 18 134/65 93 Room Air 06/14 0320 98.4 81 20 120/48 93 Room Air 06/14 0202 Room Air 06/14 0033 101.1 06/13 2231 102.7 99 20 150/56 100 Room Air 06/13 1906 98.4 94 20 125/66 96 06/13 1450 98.6 78 20 132/60 97 Room Air 06/13 1119 97.5 69 20 134/59 95 Room Air 0.0 I&O 06/14 0000 06/13 1600 06/13 0800 Intake Total 200 810 Output Total 725 464 763 Balance -525 346 -763 General Appearance Alert, Cooperative, No acute distress Lungs Scattered rhonchi, no rales Cardiovascular Regular rate and rhythm, Normal S1 and S2 Abdomen Normal bowel sounds, Soft, No tenderness Extremities No cyanosis, No clubbing, edema unchanged Psych/Mental Status Mental status normal, Mood normal LAB Results Laboratory Tests 06/14 06/14 06/13 0520 0505 2325 Chemistry Plasma Sodium (136 - 145 mmol/L) 144 Plasma Potassium (3.5 - 5.1 mmol/L) 4.0 Plasma Chloride (98 - 107 mmol/L) 111 CO2 (Enzymatic) (21 - 32 mmol/L) 23 BUN (7 - 18 mg/dL) 42 Creatinine (0.6 - 1.3 mg/dL) 1.4 Est GFR ( Amer) (mL/min) 49.75 Est GFR (Non-Af Amer) (mL/min) 41.05 Glucose (70 - 110 mg/dL) 168 Plasma Calcium (8.5 - 10.1 mg/dL) 8.0 Plasma Magnesium (1.8 - 2.4 mg/dL) 1.6 Coagulation INR (0.8 - 1.2) 4.4 Hematology WBC (4.5 - 11.5 K/uL) 10.2 RBC (4.00 - 5.20 M/uL) 2.48 Hgb (12.0 - 16.0 gm/dL) 7.5 Cancelled 9.0 Hct (36.0 - 46.0 %) 23.3 Cancelled 28.7 MCV (80 - 100 fL) 94 MCH (26 - 34 pg) 30 RDW (11.6 - 14.8 %) 13.6 Neut % (Auto) (50 - 75 %) 85.7 Lymph % (Auto) (25 - 40 %) 6.9 [place] % (Auto) (3 - 14 %) 7.2 Eos % (Auto) (0 - 4 %) 0 Baso % (Auto) (0 - 2 %) 0.2 Plt Count, EDTA (150 - 400 K/uL) 241 PUBS MCHC (31 - 37 g/dL) 32 Assessment and Plan Problem List 1. UTI (urinary tract infection) Plan -Awaiting final urine C&S -continue Levaquin. 2. Generalized weakness Plan -persistent weakness but improved -Monitor 3. Acute bronchitis Plan -patient with mild cough -No significant wheezing/shortness of breath -Monitor 4. Multiple sclerosis Plan -stable -Continue present therapy -Monitor 5. Sacral decubitus ulcer Plan -await final wound C&S -Continue present antimicrobial therapy -Follow up with surgery -Monitor 6. HTN (hypertension) Plan -stable -Blood pressure well controlled -Monitor 7. CHF (congestive heart failure) Plan -stable -Continue present therapy -Low salt diet 8. Diabetes 9. Chronic anticoagulation Status Chronic Onset Date Unknown Plan -INR elevated -Hold Coumadin. -Monitor 10. Anemia Status Acute Onset Date Unknown Plan -patient with mild anemia -Check iron studies, B12, folate, reticulocyte count -monitor -Transfusion as necessary 11. Mitral valve disease Status Chronic Onset Date Unknown Plan -stable -Continue anticoagulation, hold today secondary to elevated INR Current status: Fair, unstable Anticipated discharge date: Anticipated discharge in 2-3 days Anticipated discharge placement: home Patient care time: Time spent in chart review, patient interview, physical exam, CPOE, and care documentation: 25 minutes Visit to patient today: 2 Complexity of care: Moderate E&M Codes Rounding: Inpt-High/[id number]
[2016-06-15] VITALS (7 sets, daily range): BP systolic 131–153; BP diastolic 61–73
--- NOTE | 2016-06-15 12:57 | Progress Note ---
Subjective General No new complaints, she has buttock soreness and drainage. Physical Exam Vital Signs / I&Os Vital Signs Date Time Temp Pulse Resp B/P Pulse O2 O2 Flow FiO2 Ox Delivery Rate 06/15 1038 98.8 70 18 145/68 96 Room Air 06/15 0649 99.1 90 18 145/64 96 Room Air 0.0 06/15 0244 98.4 89 18 131/67 96 Room Air 06/15 0045 Room Air 06/14 2302 98.8 73 18 124/56 96 Room Air 06/14 1818 98.1 94 18 131/60 100 06/14 1426 98.1 67 18 114/67 98 I&O 06/14 0800 06/14 1600 06/15 0000 Intake Total 120 360 240 Output Total 350 1100 650 Balance -230 -740 -410 General Appearance Alert Other the presacral area shows an additional area of necrosis which I opened up more to promote drainage. Assessment and Plan Problem List 1. Sacral decubitus ulcer Plan continue off loading, packing, antibiotics Pt. needs to be debrided in the OR tommorow as I can not adequately clean up the necrotic tissue at the bedside.
--- NOTE | 2016-06-15 15:50 | Progress Note ---
Subjective General Note Date: June 15, 2016 Admission Date: June 14, 2016 Hospital Day: 3 PCP: None Status: Inpatient Advanced Directive: NO CODE Room: 208 Brief History: The patient is a 60-year-old white female with a significant past medical history of multiple sclerosis, hypertension, diabetes mellitus, who presented to [facility] emergency department on the day of admission secondary to complaints of generalized weakness nausea and vomiting. ER evaluation was consistent with UTI , bronchitis, and sacral decubitus ulcer. Secondary to the above, the patient was admitted by Ana Vang M.D. for further evaluation and treatment. For other history present illness, past medical history, family history, social history, review of systems, and admission physical examination please see the patient's history and physical examination and ER visit note in the patient's medical record. Subjective: The patient states she is doing somewhat better today. Persistent generalized weakness. No specific complaints or requests at this time. Eating poorly. No nausea or vomiting. Patient requests: None Medications and Allergies Medications Current Medications Sig/Latonia Start time Last Medication Dose Route Stop Time Status Admin Albuterol/Ipratropium 3 ML RTQ6H 06/15 1400 AC 06/15 IN 1405 Ertapenem 1,000 MG 1300 06/15 1300 AC 06/15 Sodium Chloride 50 ML IV 1240 Albuterol Sulfate 2.5 MG RTQ3H PRN 06/14 1915 AC IN Zinc Sulfate 220 MG QAM 06/14 0900 AC 06/15 PO 0918 Clarify Med Order See Dose ASDIRECTED 06/13 1245 AC Insts (1) PO Ascorbic Acid 500 MG DAILY 06/13 899 AC 06/15 PO 0918 Aspirin 81 MG DAILY 06/13 899 AC 06/15 PO 0918 Calcitriol 0.25 MCG DAILY 06/13 899 AC 06/15 PO 0918 Cholecalciferol 1,000 UNIT DAILY 06/13 899 AC 06/15 PO 0918 Duloxetine HCl 30 MG DAILY 06/13 899 AC 06/15 PO 0918 Insulin Glargine 15 UNITS DAILY 06/13 899 AC 06/15 SC 0918 Oxybutynin Chloride 5 MG DAILY 06/13 899 AC 06/15 PO 0918 Patient Own See Dose MoWeFr 06/13 899 AC 06/15 Medication Insts (2) SC 0918 Senna 1 TAB DAILY 06/13 899 AC 06/15 PO 0918 Clarify Med Order See Dose ASDIRECTED 06/13 0800 AC Insts (3) PO Clotrimazole See Dose QID 06/13 0600 AC 06/15 Insts (4) TOP 1240 Pantoprazole Sodium 40 MG DAILY@0600 06/13 0600 AC 06/15 Sesquihydrate PO 0543 Gabapentin 100 MG TID 06/12 2200 AC 06/15 PO 1355 Baclofen 10 MG BID 06/12 2100 AC 06/15 PO 0918 Bupropion HCl 100 MG BID 06/12 2100 AC 06/15 PO 0918 Famotidine 20 MG DAILY 06/12 2100 AC 06/15 PO 0918 Atorvastatin Calcium 80 MG QPM 06/12 1800 AC 06/14 PO 1859 Furosemide 40 MG DIUB 06/12 1800 AC 06/15 IV 0544 Metoprolol Tartrate 25 MG DAILY 06/12 1800 AC 06/15 PO 0918 Insulin Human Lispro See Dose ACHS 06/12 1630 AC 06/15 Insts (5) SC 1138 Acetaminophen 650 MG Q6H PRN 06/12 1400 AC 06/14 PO 0808 Docusate Sodium 250 MG BID PRN 06/12 1400 AC 06/15 PO 0543 Hydromorphone HCl 1 MG Q1H PRN 06/12 1400 AC 06/15 IV 1240 Ondansetron HCl 4 MG Q6H PRN 06/12 1400 AC 06/13 IV 0659 Dose Instructions: (1)Clarify Med Order: WARFARIN PER PHARM (2)Patient Own Medication: GLATIRAMER 40 MG (3)Clarify Med Order: PT MEDS IN PSB (OMNICELL) (4)Clotrimazole: APPLY TO AFFECTED AREA (5)Insulin Human Lispro: LOW DOSE SLIDING SCALE Allergies Coded Allergies: Clonazepam (06/12/16) Ibuprofen (06/12/16) Lactose Intolerance (GI) (06/13/16) Physical Exam Vital Signs / I&Os Vital Signs Date Time Temp Pulse Resp B/P Pulse O2 O2 Flow FiO2 Ox Delivery Rate 06/15 1425 99.0 92 18 136/68 98 Room Air 06/15 1038 98.8 70 18 145/68 96 Room Air 06/15 0649 99.1 90 18 145/64 96 Room Air 0.0 06/15 0244 98.4 89 18 131/67 96 Room Air 06/15 0045 Room Air 06/14 2302 98.8 73 18 124/56 96 Room Air 06/14 1818 98.1 94 18 131/60 100 I&O 06/15 0000 06/14 1600 06/14 0800 Intake Total 240 360 120 Output Total 650 1100 350 Balance -410 -740 -230 General Appearance Alert, Cooperative, No acute distress Lungs Scattered rhonchi, minimal expiratory wheezes. Cardiovascular Regular rate and rhythm, valve click unchanged. Abdomen Normal bowel sounds, Soft, No tenderness Extremities No cyanosis, No clubbing, BKA present. Neurological Generalized weakness. Psych/Mental Status Mood normal, Confused LAB Results Laboratory Tests 06/15 06/15 06/14 06/14 06/14 0955 0550 1707 1707 1707 Chemistry Plasma Sodium (136 - 145 mmol/L) 148 Plasma Potassium (3.5 - 5.1 mmol/L) 3.8 Plasma Chloride (98 - 107 mmol/L) 113 CO2 (Enzymatic) (21 - 32 mmol/L) 27 BUN (7 - 18 mg/dL) 40 Creatinine (0.6 - 1.3 mg/dL) 1.3 Est GFR ( Amer) (mL/min) 54.19 Est GFR (Non-Af Amer) (mL/min) 44.71 Glucose (70 - 110 mg/dL) 145 Plasma Calcium (8.5 - 10.1 mg/dL) 8.4 Plasma Magnesium (1.8 - 2.4 mg/dL) 1.6 Iron (35 - 150 ug/dL) 13 TIBC (260 - 445 ug/dL) 115 Iron Saturation (15 - 50 %) 11 B-Natriuretic Peptide (5 - 100 pg/ml) 733 Vitamin B12 (211 - 946 pg/mL) 1932 Folate (>3.0 ng/mL) 19.3 Coagulation INR (0.8 - 1.2) 5.6 Hematology WBC (4.5 - 11.5 K/uL) 11.0 RBC (4.00 - 5.20 M/uL) 2.76 Hgb (12.0 - 16.0 gm/dL) 8.2 7.9 Hct (36.0 - 46.0 %) 25.7 24.2 MCV (80 - 100 fL) 93 MCH (26 - 34 pg) 30 RDW (11.6 - 14.8 %) 13.7 Neut % (Auto) (50 - 75 %) 73 Lymph % (Auto) (25 - 40 %) 13 [place] % (Auto) (3 - 14 %) 9 Eos % (Auto) (0 - 4 %) 0 Baso % (Auto) (0 - 2 %) 0 Reticulocyte % (Auto) (0.5 - 1.5 %) 1.5 Reticulocyte # (0.02 - 0.08 M/uL) 0.0381 Band Neutrophils % (0 - 8 %) 5 Metamyelocytes % (0 - 1 %) 0 Myelocytes (0 - 1 %) 0 Other Cell Type 0 Plt Count, EDTA (150 - 400 K/uL) 289 PUBS MCHC (31 - 37 g/dL) 32 06/14 1706 Hematology Reticulocyte % (Auto) Cancelled Assessment and Plan Problem List 1. UTI (urinary tract infection) Plan -Patient with findings of UTI -Urine C&S positive for Klebsiella pneumonia -Urine C&S ESBL-positive to ertapenem -Switch to ertapenem 1 g IV daily 2. Generalized weakness Plan -Slightly improved -Physical therapy evaluation -Plan discharge to longterm facility for ongoing rehabilitation 3. Acute bronchitis Plan -Patient with findings of mild bronchitis -Chest x-ray inconsistent with pneumonia -Monitor -Bronchodilators 4. Multiple sclerosis Plan -Stable -Continue outpatient medical regimen. 5. Sacral decubitus ulcer Plan -Patient with sacral decubiti -Follow per surgery -Dr. Viramontes feels surgical debridement in the operating room required. -Requested wound culture per Dr. Viramontes -Follow per surgery -Continue antimicrobials with recheck of culture secondary to enterococcus 6. HTN (hypertension) Plan -Blood pressure adequately controlled -Monitor 7. CHF (congestive heart failure) Plan -Patient with history of CHF -Pulmonary exam shows no significant pulmonary congestion -Check echocardiogram -Check BNP in a.m. 8. Diabetes Plan -Patient with long-standing history of diabetes mellitus. -Blood sugar mildly elevated. -Fasting blood chair 145 mg/dL this a.m. -Continue Lantus and lispro sliding scale. -Monitor 9. Chronic anticoagulation Status Chronic Onset Date Unknown Plan -INR elevated -Hold Coumadin -No signs of bleeding -No reversal with vitamin K at this time -Monitor 10. Iron deficiency anemia Status Acute Onset Date Unknown Plan -Patient with findings of iron deficiency anemia -Ferrous sulfate 325 mg by mouth twice a day. -Monitor Current status: Fair, improved Anticipated discharge date: Anticipated discharge in 2-3 days Anticipated discharge placement: [facility] facility Patient care time: Time spent in chart review, patient interview, physical exam, CPOE, and care documentation: 35 minutes Visit to patient today: 2 Complexity of care: High E&M Codes Rounding: Inpt-High/[id number]
[2016-06-16] VITALS (12 sets, daily range): BP systolic 102–157; BP diastolic 57–77
--- NOTE | 2016-06-16 13:33 | OPERATIVE REPORT ---
DATE OF SURGERY: 06/16/2016 SURGEON: Tom Viramontes MD PREOPERATIVE DIAGNOSIS: 1. Pressure ulcer of buttock POSTOPERATIVE DIAGNOSIS: 1. Pressure ulcer of buttocks with subcutaneous necrotizing infection PROCEDURE PERFORMED: 1. Excisional debridement including skin, subcutaneous tissue, and presacral fascia, 8 x 15 cm SURGICAL TECHNIQUE: The patient was taken to the operating room, where a total IV general was administered and the patient was placed in the left lateral decubitus position. Her INR was elevated, which was known preoperatively and her Coumadin had been held for several days, but was still up due to an interaction with her antibiotics. A local anesthetic of 0.5% Marcaine with epinephrine was used throughout this procedure and resulted in excellent vasoconstriction and hemostasis. There were 2 open necrotic foul-smelling ulcers, one up near the sacrum and one further down on the patient 's left side toward the anus. This was probed and these interconnected. After extensive infiltration of local anesthetic, the overlying skin was opened up, revealing foul-smelling frothy tissue with purulence. A sample was submitted in a culturette. The necrotic material was debrided away using sharp dissection. Additionally, there was a tract leading to the patient's right side more proximally near the gluteal cleft. This also contained necrotic tissue and the overlying skin was opened up and the underlying necrotic tissue was fully excised. After extensive debridement, meticulous pinpoint hemostasis was obtained using electrocautery and local anesthetic. At the conclusion, the wound was hemostatic. The wound was packed using a Kerlix gauze soaked in local anesthetic and covered with an absorbent gauze. The patient left in stable condition and no intraoperative complications were encountered.
--- NOTE | 2016-06-16 17:40 | DIAGNOSTIC IMAGING REPORT ---
REFERRING PHYSICIAN/PROVIDER: Tha Vega MD CONSULTING AUTOMOTIVE VEHICLE INSPECTOR: William Tovar Jr MD INDICATION: chf Procedure: A two-dimensional transthoracic echocardiogram with color flow and Doppler was performed. The study quality was technically adequate. The patient was in normal sinus rhythm during the exam. Left Ventricle: The left ventricle is normal in size. There is mild concentric left ventricular hypertrophy. Left ventricular systolic function is normal without focal wall motion abnormalities. The ejection fraction is estimated to be 65-70%. Spectral Doppler of the mitral valve shows a normal E/A wave ratio. Right Ventricle: The right ventricle is normal in size and function. Atria: Both atria are normal in size. The interatrial septum is intact with no evidence for an atrial septal defect. Mitral Valve: There is a mechanical mitral valve. The prosthetic mitral valve is well-seated. Cannot assess the presence or severity of regurgitation due to shielding from the prosthesis. The mean gradient is 9.6 mmHg. However there is no obvious evidence for significant MR. Aortic Valve: The aortic valve is trileaflet. The aortic valve opens well. There is no aortic regurgitation. Tricuspid Valve: The tricuspid valve is normal in structure and function. There is a trace or physiologic amount of tricuspid regurgitation. Pulmonic Valve: The pulmonic valve is not well visualized. There is no pulmonic valvular regurgitation. Great Vessels: The aortic root is normal size. The ascending aorta is normal in size. The aortic arch is normal in size. The IVC is of normal diameter and collapses greater than 50% with a sniff. This suggests a low right atrial pressure of 3 mm Hg. Pericardium/ Pleura There is no pericardial effusion. IMPRESSION: There is mild concentric left ventricular hypertrophy. Left ventricular systolic function is normal without focal wall motion abnormalities. The ejection fraction is estimated to be 65-70%. The right ventricle is normal in size and function. Both atria are normal in size. There appears to be a mechanical mitral valve. The type of prosthetic mitral valve is not known. The prosthetic mitral valve is well-seated. Cannot assess the presence or severity of regurgitation due to shielding from the prosthesis. The mean gradient is 9.6 mmHg. However there is no obvious evidence for significant MR. The aortic root is normal size.
--- NOTE | 2016-06-16 18:13 | Progress Note ---
Subjective General Note Date: June 16, 2016 Admission Date: June 14, 2016 Hospital Day: 4 PCP: None Status: Inpatient Advanced Directive: NO CODE Room: 208 Brief History: The patient is a 60-year-old white female with a significant past medical history of multiple sclerosis, hypertension, diabetes mellitus, who presented to [facility] emergency department on the day of admission secondary to complaints of generalized weakness nausea and vomiting. ER evaluation was consistent with UTI , bronchitis, and sacral decubitus ulcer. Secondary to the above, the patient was admitted by Ana Vang M.D. for further evaluation and treatment. For other history present illness, past medical history, family history, social history, review of systems, and admission physical examination please see the patient's history and physical examination and ER visit note in the patient's medical record. Subjective: Patient with persistent pain in sacral region. Patient underwent debridement today with significant necrotic tissue. Patient requests: None Medications and Allergies Medications Current Medications Sig/Latonia Start time Last Medication Dose Route Stop Time Status Admin Bupivacaine HCl/ 20 ML .STK-MED ONE 06/16 1128 CAN Epinephrine Bitart BILL 06/16 1129 Famotidine/Sodium 50 ML .BUSINESS UNIT LEADER TO OR 06/16 1000 AC 06/16 Chloride IV 1011 Ondansetron HCl 4 MG .BUSINESS UNIT LEADER TO OR 06/16 1000 AC 06/16 IV 1011 Famotidine/Sodium 50 ML .[BUSINESS UNIT LEADER TO OR] 06/15 1845 AC Chloride IV Lactated Ringer's 1,000 ML .[BUSINESS UNIT LEADER TO OR] 06/15 1845 AC IV Ferrous Sulfate 325 MG BIDWC 06/15 1830 AC 06/16 PO 1738 Albuterol/Ipratropium 3 ML RTQ6H 06/15 1400 AC 06/16 IN 1432 Ertapenem 1,000 MG 1300 06/15 1300 AC 06/16 Sodium Chloride 50 ML IV 1313 Albuterol Sulfate 2.5 MG RTQ3H PRN 06/14 1915 AC IN Zinc Sulfate 220 MG QAM 06/14 09 AC 06/16 PO 1300 Clarify Med Order See Dose ASDIRECTED 06/13 1245 AC Insts (1) PO Ascorbic Acid 500 MG DAILY 06/13 09 AC 06/16 PO 1259 Aspirin 81 MG DAILY 06/13 09 AC 06/16 PO 1259 Calcitriol 0.25 MCG DAILY 06/13 09 AC 06/16 PO 1259 Cholecalciferol 1,000 UNIT DAILY 06/13 0900 AC 06/16 PO 1259 Duloxetine HCl 30 MG DAILY 06/13 0900 AC 06/16 PO 1259 Insulin Glargine 15 UNITS DAILY 06/13 0900 AC 06/15 SC 0918 Oxybutynin Chloride 5 MG DAILY 06/13 0900 AC 06/16 PO 1259 Patient Own See Dose MoWeFr 06/13 0900 AC 06/15 Medication Insts (2) SC 0918 Senna 1 TAB DAILY 06/13 0900 AC 06/15 PO 0918 Clarify Med Order See Dose ASDIRECTED 06/13 0800 AC Insts (3) PO Clotrimazole See Dose QID 06/13 0600 AC 06/16 Insts (4) TOP 1804 Pantoprazole Sodium 40 MG DAILY@0600 06/13 0600 AC 06/16 Sesquihydrate PO 1332 Gabapentin 100 MG TID 06/12 2200 AC 06/16 PO 1313 Baclofen 10 MG BID 06/12 2100 AC 06/16 PO 1259 Bupropion HCl 100 MG BID 06/12 2100 AC 06/15 PO 2022 Atorvastatin Calcium 80 MG QPM 06/12 1800 AC 06/16 PO 1737 Furosemide 40 MG DIUB 06/12 1800 AC 06/16 IV 1739 Metoprolol Tartrate 25 MG DAILY 06/12 1800 AC 06/16 PO 1011 Insulin Human Lispro See Dose ACHS 06/12 1630 AC 06/16 Insts (5) SC 1801 Acetaminophen 650 MG Q6H PRN 06/12 1400 AC 06/14 PO 0808 Docusate Sodium 250 MG BID PRN 06/12 1400 AC 06/16 PO 0020 Hydromorphone HCl 1 MG Q1H PRN 06/12 1400 AC 06/16 IV 1711 Ondansetron HCl 4 MG Q6H PRN 06/12 1400 AC 06/16 IV 0533 Dose Instructions: (1)Clarify Med Order: WARFARIN PER PHARM (2)Patient Own Medication: GLATIRAMER 40 MG (3)Clarify Med Order: PT MEDS IN PSB (OMNICELL) (4)Clotrimazole: APPLY TO AFFECTED AREA (5)Insulin Human Lispro: LOW DOSE SLIDING SCALE Allergies Coded Allergies: Clonazepam (06/12/16) Ibuprofen (06/12/16) Lactose Intolerance (GI) (06/13/16) Physical Exam Vital Signs / I&Os Vital Signs Date Time Temp Pulse Resp B/P Pulse O2 O2 Flow FiO2 Ox Delivery Rate 03 1500 98.8 92 20 146/57 95 Room Air 03/ 1401 99.0 75 18 142/60 94 03/02 1329 99.0 89 18 102/77 95 03/02 1315 88 18 142/67 95 03/02 1300 89 17 139/70 95 03/02 1245 98.1 71 12 138/61 99 03/02 1235 78 16 142/60 98 03/02 1225 92 12 135/57 99 03/02 1219 79 12 135/62 98 03/02 1213 79 13 145/60 99 03/02 1208 97.3 92 13 134/67 100 Nasal 2.0 Cannula 03/ 1010 99.7 97 21 157/73 93 Room Air 03/ 0705 99.1 89 18 142/64 95 Room Air 0.0 03/ 0415 Room Air 06/16 0301 98.6 82 18 151/66 95 Room Air 03 2318 99.0 93 18 153/61 96 Room Air 06/15 2215 99.3 84 18 137/64 97 Room Air I&O 06/16 0000 03 1600 03 0800 Intake Total 480 240 200 Output Total 800 1750 1300 Balance -320 -1510 -1100 General Appearance Alert, Oriented X3, Cooperative, No acute distress Lungs Scattered rhonchi, no wheezes Cardiovascular Regular rate and rhythm, Normal S1 and S2, valve click unchanged Abdomen Normal bowel sounds, Soft Extremities No cyanosis, No clubbing Psych/Mental Status Mental status normal, Mood normal LAB Results Laboratory Tests 06/16 06/16 06/15 0535 7119 2430 Chemistry Plasma Sodium (136 - 145 mmol/L) 146 Plasma Potassium (3.5 - 5.1 mmol/L) 3.7 Plasma Chloride (98 - 107 mmol/L) 110 CO2 (Enzymatic) (21 - 32 mmol/L) 27 BUN (7 - 18 mg/dL) 35 Creatinine (0.6 - 1.3 mg/dL) 1.1 Est GFR ( Amer) (mL/min) >60 Est GFR (Non-Af Amer) (mL/min) 54.22 Glucose (70 - 110 mg/dL) 158 Plasma Calcium (8.5 - 10.1 mg/dL) 8.3 B-Natriuretic Peptide (5 - 100 pg/ml) 993 Coagulation INR (0.8 - 1.2) 5.9 6.3 Hematology WBC (4.5 - 11.5 K/uL) 10.4 RBC (4.00 - 5.20 M/uL) 2.82 Hgb (12.0 - 16.0 gm/dL) 8.5 Hct (36.0 - 46.0 %) 26.1 MCV (80 - 100 fL) 93 MCH (26 - 34 pg) 30 RDW (11.6 - 14.8 %) 13.8 Neut % (Auto) (50 - 75 %) 82 Lymph % (Auto) (25 - 40 %) 5 Sharp % (Auto) (3 - 14 %) 3 Eos % (Auto) (0 - 4 %) 0 Baso % (Auto) (0 - 2 %) 0 Band Neutrophils % (0 - 8 %) 10 Metamyelocytes % (0 - 1 %) 0 Myelocytes (0 - 1 %) 0 Other Cell Type 0 Plt Count, EDTA (150 - 400 K/uL) 403 PUBS MCHC (31 - 37 g/dL) 33 Microbiology Date/Time Procedure - Status Source Growth 06/16 1140 Deep Wound Culture - RES BUTTOCK 06/16 1140 Deep Wound Culture - RES BUTTOCK 06/16 1140 Gram Stain - RES BUTTOCK Imaging Echocardiogram IMPRESSION: There is mild concentric left ventricular hypertrophy. Left ventricular systolic function is normal without focal wall motion abnormalities. The ejection fraction is estimated to be 65-70%. The right ventricle is normal in size and function. Both atria are normal in size. There appears to be a mechanical mitral valve. The type of prosthetic mitral valve is not known. The prosthetic mitral valve is well-seated. Cannot assess the presence or severity of regurgitation due to shielding from the prosthesis. The mean gradient is 9.6 mmHg. However there is no obvious evidence for significant MR. The aortic root is normal size. Dictated by: LENA CORNEJO MD D: SHAILA;06/16/16 9840 Assessment and Plan Problem List 1. Sacral decubitus ulcer Plan -patient with sacral decubiti -Patient underwent debridement per Dr. Viramontes today -Cultures obtained -Continue with antimicrobials-ertapenem, vancomycin, clindamycin -Follow per Dr. Viramontes 2. CHF (congestive heart failure) Plan -stable -Respiratory status improved -No oxygen requirement -Monitor -check echocardiogram 3. GERD (gastroesophageal reflux disease) Plan -stable -No further evaluation -Continue present therapy 4. Chronic anticoagulation Status Chronic Onset Date Unknown Plan -INR remains elevated -We'll hold Coumadin -Daily INR -No signs of bleeding at this time 5. Mitral valve disease Status Chronic Onset Date Unknown Plan -stable -Continue anticoagulation -No further evaluation 6. Iron deficiency anemia Status Acute Onset Date Unknown Plan -findings consistent with iron deficiency anemia -Monitor H&H -Ferrous sulfate 325 mg by mouth twice a day -Transfusional therapy as necessary, hold transfusion at this time 7. UTI (urinary tract infection) Plan -UTI with Klebsiella, ESBL -Ertapenem 1 g IV daily -Monitor 8. Acute bronchitis Plan -status improved -Bronchospasm improved -Monitor Current status: Unstable, fair Anticipated discharge date: Anticipated discharge in 3-4 days Anticipated discharge placement: detention facility Patient care time: Time spent in chart review, patient interview, physical exam, CPOE, and care documentation: 35 minutes Visit to patient today: 1 Complexity of care: High E&M Codes Rounding: Inpt-High/[id number]
--- NOTE | 2016-06-16 18:13 | Progress Note ---
Subjective General Note Date: June 16, 2016 Admission Date: June 14, 2016 Hospital Day: 4 PCP: None Status: Inpatient Advanced Directive: NO CODE Room: 208 Brief History: The patient is a 60-year-old white female with a significant past medical history of multiple sclerosis, hypertension, diabetes mellitus, who presented to [facility] emergency department on the day of admission secondary to complaints of generalized weakness nausea and vomiting. ER evaluation was consistent with UTI , bronchitis, and sacral decubitus ulcer. Secondary to the above, the patient was admitted by Ana Vang M.D. for further evaluation and treatment. For other history present illness, past medical history, family history, social history, review of systems, and admission physical examination please see the patient's history and physical examination and ER visit note in the patient's medical record. Subjective: Patient with persistent pain in sacral region. Patient underwent debridement today with significant necrotic tissue. Patient requests: None Medications and Allergies Medications Current Medications Sig/Lat[place] Start time Last Medication Dose Route Stop Time Status Admin Bupivacaine HCl/ 20 ML .STK-MED ONE 06/16 1128 CAN Epinephrine Bitart BILL 06/16 1129 Famotidine/Sodium 50 ML .MEDICAL CASE WORKER TO OR 06/16 1000 AC 06/16 Chloride IV 1011 Ondansetron HCl 4 MG .MEDICAL CASE WORKER TO OR 06/16 1000 AC 06/16 IV 1011 Famotidine/Sodium 50 ML .[MEDICAL CASE WORKER TO OR] 06/15 1845 AC Chloride IV Lactated Ringer's 1,000 ML .[MEDICAL CASE WORKER TO OR] 06/15 1845 AC IV Ferrous Sulfate 325 MG BIDWC 06/15 1830 AC 06/16 PO 1738 Albuterol/Ipratropium 3 ML RTQ6H 06/15 1400 AC 06/16 IN 1432 Ertapenem 1,000 MG 1300 06/15 1300 AC 06/16 Sodium Chloride 50 ML IV 1313 Albuterol Sulfate 2.5 MG RTQ3H PRN 06/14 1915 AC IN Zinc Sulfate 220 MG QAM 06/14 09 AC 06/16 PO 1300 Clarify Med Order See Dose ASDIRECTED 06/13 1245 AC Insts (1) PO Ascorbic Acid 500 MG DAILY 06/13 09 AC 06/16 PO 1259 Aspirin 81 MG DAILY 06/13 09 AC 06/16 PO 1259 Calcitriol 0.25 MCG DAILY 06/13 09 AC 06/16 PO 1259 Cholecalciferol 1,000 UNIT DAILY 06/13 0900 AC 06/16 PO 1259 Duloxetine HCl 30 MG DAILY 06/13 0900 AC 06/16 PO 1259 Insulin Glargine 15 UNITS DAILY 06/13 0900 AC 06/15 SC 0918 Oxybutynin Chloride 5 MG DAILY 06/13 0900 AC 06/16 PO 1259 Patient Own See Dose MoWeFr 06/13 0900 AC 06/15 Medication Insts (2) SC 0918 Senna 1 TAB DAILY 06/13 0900 AC 06/15 PO 0918 Clarify Med Order See Dose ASDIRECTED 06/13 0800 AC Insts (3) PO Clotrimazole See Dose QID 06/13 0600 AC 06/16 Insts (4) TOP 1804 Pantoprazole Sodium 40 MG DAILY@0600 06/13 0600 AC 06/16 Sesquihydrate PO 1332 Gabapentin 100 MG TID 06/12 2200 AC 06/16 PO 1313 Baclofen 10 MG BID 06/12 2100 AC 06/16 PO 1259 Bupropion HCl 100 MG BID 06/12 2100 AC 06/15 PO 2022 Atorvastatin Calcium 80 MG QPM 06/12 1800 AC 06/16 PO 1737 Furosemide 40 MG DIUB 06/12 1800 AC 06/16 IV 1739 Metoprolol Tartrate 25 MG DAILY 06/12 1800 AC 06/16 PO 1011 Insulin Human Lispro See Dose ACHS 06/12 1630 AC 06/16 Insts (5) SC 1801 Acetaminophen 650 MG Q6H PRN 06/12 1400 AC 06/14 PO 0808 Docusate Sodium 250 MG BID PRN 06/12 1400 AC 06/16 PO 0020 Hydromorphone HCl 1 MG Q1H PRN 06/12 1400 AC 06/16 IV 1711 Ondansetron HCl 4 MG Q6H PRN 06/12 1400 AC 06/16 IV 0533 Dose Instructions: (1)Clarify Med Order: WARFARIN PER PHARM (2)Patient Own Medication: GLATIRAMER 40 MG (3)Clarify Med Order: PT MEDS IN PSB (OMNICELL) (4)Clotrimazole: APPLY TO AFFECTED AREA (5)Insulin Human Lispro: LOW DOSE SLIDING SCALE Allergies Coded Allergies: Clonazepam (06/12/16) Ibuprofen (06/12/16) Lactose Intolerance (GI) (06/13/16) Physical Exam Vital Signs / I&Os Vital Signs Date Time Temp Pulse Resp B/P Pulse O2 O2 Flow FiO2 Ox Delivery Rate 03 1500 98.8 92 20 146/57 95 Room Air 03/ 1401 99.0 75 18 142/60 94 03/02 1329 99.0 89 18 102/77 95 03/02 1315 88 18 142/67 95 03/02 1300 89 17 139/70 95 03/02 1245 98.1 71 12 138/61 99 03/02 1235 78 16 142/60 98 03/02 1225 92 12 135/57 99 03/02 1219 79 12 135/62 98 03/02 1213 79 13 145/60 99 03/02 1208 97.3 92 13 134/67 100 Nasal 2.0 Cannula 03/ 1010 99.7 97 21 157/73 93 Room Air 03/ 0705 99.1 89 18 142/64 95 Room Air 0.0 03/ 0415 Room Air 06/16 0301 98.6 82 18 151/66 95 Room Air 03 2318 99.0 93 18 153/61 96 Room Air 06/15 2215 99.3 84 18 137/64 97 Room Air I&O 06/16 0000 03 1600 03 0800 Intake Total 480 240 200 Output Total 800 1750 1300 Balance -320 -1510 -1100 General Appearance Alert, Oriented X3, Cooperative, No acute distress Lungs Scattered rhonchi, no wheezes Cardiovascular Regular rate and rhythm, Normal S1 and S2, valve click unchanged Abdomen Normal bowel sounds, Soft Extremities No cyanosis, No clubbing Psych/Mental Status Mental status normal, Mood normal LAB Results Laboratory Tests 06/16 06/16 06/15 0535 8725 2770 Chemistry Plasma Sodium (136 - 145 mmol/L) 146 Plasma Potassium (3.5 - 5.1 mmol/L) 3.7 Plasma Chloride (98 - 107 mmol/L) 110 CO2 (Enzymatic) (21 - 32 mmol/L) 27 BUN (7 - 18 mg/dL) 35 Creatinine (0.6 - 1.3 mg/dL) 1.1 Est GFR ( Amer) (mL/min) >60 Est GFR (Non-Af Amer) (mL/min) 54.22 Glucose (70 - 110 mg/dL) 158 Plasma Calcium (8.5 - 10.1 mg/dL) 8.3 B-Natriuretic Peptide (5 - 100 pg/ml) 993 Coagulation INR (0.8 - 1.2) 5.9 6.3 Hematology WBC (4.5 - 11.5 K/uL) 10.4 RBC (4.00 - 5.20 M/uL) 2.82 Hgb (12.0 - 16.0 gm/dL) 8.5 Hct (36.0 - 46.0 %) 26.1 MCV (80 - 100 fL) 93 MCH (26 - 34 pg) 30 RDW (11.6 - 14.8 %) 13.8 Neut % (Auto) (50 - 75 %) 82 Lymph % (Auto) (25 - 40 %) 5 Chester % (Auto) (3 - 14 %) 3 Eos % (Auto) (0 - 4 %) 0 Baso % (Auto) (0 - 2 %) 0 Band Neutrophils % (0 - 8 %) 10 Metamyelocytes % (0 - 1 %) 0 Myelocytes (0 - 1 %) 0 Other Cell Type 0 Plt Count, EDTA (150 - 400 K/uL) 403 PUBS MCHC (31 - 37 g/dL) 33 Microbiology Date/Time Procedure - Status Source Growth 06/16 1140 Deep Wound Culture - RES BUTTOCK 06/16 1140 Deep Wound Culture - RES BUTTOCK 06/16 1140 Gram Stain - RES BUTTOCK Imaging Echocardiogram IMPRESSION: There is mild concentric left ventricular hypertrophy. Left ventricular systolic function is normal without focal wall motion abnormalities. The ejection fraction is estimated to be 65-70%. The right ventricle is normal in size and function. Both atria are normal in size. There appears to be a mechanical mitral valve. The type of prosthetic mitral valve is not known. The prosthetic mitral valve is well-seated. Cannot assess the presence or severity of regurgitation due to shielding from the prosthesis. The mean gradient is 9.6 mmHg. However there is no obvious evidence for significant MR. The aortic root is normal size. Dictated by: LENA CORNEJO MD D: SHAILA;06/16/16 5627 Assessment and Plan Problem List 1. Sacral decubitus ulcer Plan -patient with sacral decubiti -Patient underwent debridement per Dr. Viramontes today -Cultures obtained -Continue with antimicrobials-ertapenem, vancomycin, clindamycin -Follow per Dr. Viramontes 2. CHF (congestive heart failure) Plan -stable -Respiratory status improved -No oxygen requirement -Monitor -check echocardiogram 3. GERD (gastroesophageal reflux disease) Plan -stable -No further evaluation -Continue present therapy 4. Chronic anticoagulation Status Chronic Onset Date Unknown Plan -INR remains elevated -We'll hold Coumadin -Daily INR -No signs of bleeding at this time 5. Mitral valve disease Status Chronic Onset Date Unknown Plan -stable -Continue anticoagulation -No further evaluation 6. Iron deficiency anemia Status Acute Onset Date Unknown Plan -findings consistent with iron deficiency anemia -Monitor H&H -Ferrous sulfate 325 mg by mouth twice a day -Transfusional therapy as necessary, hold transfusion at this time 7. UTI (urinary tract infection) Plan -UTI with Klebsiella, ESBL -Ertapenem 1 g IV daily -Monitor 8. Acute bronchitis Plan -status improved -Bronchospasm improved -Monitor Current status: Unstable, fair Anticipated discharge date: Anticipated discharge in 3-4 days Anticipated discharge placement: custodial facility Patient care time: Time spent in chart review, patient interview, physical exam, CPOE, and care documentation: 35 minutes Visit to patient today: 1 Complexity of care: High E&M Codes Rounding: Inpt-High/[id number]
[2016-06-17] VITALS (13 sets, daily range): BP systolic 124–155; BP diastolic 50–75
--- NOTE | 2016-06-17 04:52 | ED MAR SUMMARY ---
..... Medication Administration Record [facility] [address] [place] [address] Patient: DAMI MEJIA Visit ID: [id number] 60y, F Weight: 99.7 kg Height/Length: 67 in BMI: 34.5 ALLERGIES: Ibuprofen, Clonazepam Start 13:34 06/12/2016 Susan Pantoja R.N., Stop 14:35 06/12/2016 Susan Pantoja R.N. Medication Administered: LEVAQUIN [IVPB] (LEVOFLOXACIN), Dose: 500 mg IVPB over 1 hour(s), Rate: 100 mL/hr, Dispensed: 100 mL bag, Site: #1 right AC. Medication Ordered: Levaquin IV 500 mg/100mL (NOW). Given 14:52 06/12/2016 Susan Pantoja RTejaNTeja Medication Administered: DILAUDID [IVP] (HYDROMORPHONE HCL PF), Dose: 1 mg IVP over 1 minute(s), Site: #1 right AC. Medication Ordered: Dilaudid IV 1 mg (HIGH ALERT MEDICATION, NOW).
--- NOTE | 2016-06-17 04:52 | ED MED RECONCILIATION SUMMARY ---
Patient: DAMI MEJIA Medication Reconciliation Report [facility] VisitID: [id number] [address] [place] [address] 60y, F Registration Date/Time: 06/12/2016 Weight: 99.7 kg Height/Length: 67 in. BMI: 34.5 ALLERGIES: Clonazepam, Ibuprofen The patient's Home Medications are listed below: THE FOLLOWING MEDICATIONS NEED TO BE RECONCILED: Acetaminophen Oral Aspirin Low Strength Oral, daily Atorvastatin Calcium Oral 80 mg, at bedtime Baclofen Oral 10 mg, at bedtime Bisacodyl Laxative Rectal BuPROPion HCl ER (SR) Oral 100 mg, daily Calcitriol Oral (0.25 mcg), daily Copaxone Subcutaneous 40 mg , 3 x week, Mon, Wed, Mon Docusate Sodium Oral DULoxetine HCl Oral Florastor Oral Gabapentin Oral 100 mg, 3x a day HYDROmorphone HCl Oral 2 mg Lantus Subcutaneous 28 units, daily Metoclopramide HCl Oral 5 mg, 3x a day Metoprolol Tartrate Oral 25 mg, daily Multi Vitamin Daily Oral NovoLOG FlexPen Subcutaneous Nystop External Omeprazole Oral 20 mg, daily Ondansetron HCl Oral (4 mg) Oxybutynin Chloride ER Oral 5 mg, daily Ranitidine HCl Oral 150 mg, 2x a day Senna Oral Tums Oral Vitamin B-12 Oral Vitamin c Oral Vitamin D-3 Oral Warfarin Sodium Oral 9 mg , daily The source(s) of the original Home Medication information: Not obtained. The following Medications were given to the patient in the Emergency Department: Levaquin [IVPB] IVPB bolus 0, then 500 mg 100 mL/hr, administered: 06/12/2016 1:34:00 PM Dilaudid [IVP] IVP 1 mg, administered: 06/12/2016 2:52:00 PM The following Medications were prescribed to the patient: None.
--- NOTE | 2016-06-17 04:52 | ED DISCHARGE INSTRUCTIONS ---
Patient: DAMI MEJIA General Instructions [facility] VisitID: [id number] [address] [place] [address] 60y, F Registration Date/Time: 06/12/2016 Acute urinary tract infection with cystitis. Morbid obesity (BMI >=40). Fatigue and generalized weakness, secondary to acute illness and chronic deconditioning. (Electronically signed by Eloina Miller MD 06/17/2016 4:51)
--- NOTE | 2016-06-17 04:52 | ED MAR SUMMARY ---
..... Medication Administration Record [facility] [address] [place] [address] Patient: DAMI MEJIA Visit ID: [id number] 60y, F Weight: 99.7 kg Height/Length: 67 in BMI: 34.5 ALLERGIES: Ibuprofen, Clonazepam Start 13:34 06/12/2016 Susan Pantoja R.N., Stop 14:35 06/12/2016 Susan Pantoja R.N. Medication Administered: LEVAQUIN [IVPB] (LEVOFLOXACIN), Dose: 500 mg IVPB over 1 hour(s), Rate: 100 mL/hr, Dispensed: 100 mL bag, Site: #1 right AC. Medication Ordered: Levaquin IV 500 mg/100mL (NOW). Given 14:52 06/12/2016 Susan Pantoja RTejaNTeja Medication Administered: DILAUDID [IVP] (HYDROMORPHONE HCL PF), Dose: 1 mg IVP over 1 minute(s), Site: #1 right AC. Medication Ordered: Dilaudid IV 1 mg (HIGH ALERT MEDICATION, NOW).
--- NOTE | 2016-06-17 04:52 | ED MED RECONCILIATION SUMMARY ---
Patient: DAMI MEJIA Medication Reconciliation Report [facility] VisitID: [id number] [address] [place] [address] 60y, F Registration Date/Time: 06/12/2016 Weight: 99.7 kg Height/Length: 67 in. BMI: 34.5 ALLERGIES: Clonazepam, Ibuprofen The patient's Home Medications are listed below: THE FOLLOWING MEDICATIONS NEED TO BE RECONCILED: Acetaminophen Oral Aspirin Low Strength Oral, daily Atorvastatin Calcium Oral 80 mg, at bedtime Baclofen Oral 10 mg, at bedtime Bisacodyl Laxative Rectal BuPROPion HCl ER (SR) Oral 100 mg, daily Calcitriol Oral (0.25 mcg), daily Copaxone Subcutaneous 40 mg , 3 x week, Mon, Wed, Mon Docusate Sodium Oral DULoxetine HCl Oral Florastor Oral Gabapentin Oral 100 mg, 3x a day HYDROmorphone HCl Oral 2 mg Lantus Subcutaneous 28 units, daily Metoclopramide HCl Oral 5 mg, 3x a day Metoprolol Tartrate Oral 25 mg, daily Multi Vitamin Daily Oral NovoLOG FlexPen Subcutaneous Nystop External Omeprazole Oral 20 mg, daily Ondansetron HCl Oral (4 mg) Oxybutynin Chloride ER Oral 5 mg, daily Ranitidine HCl Oral 150 mg, 2x a day Senna Oral Tums Oral Vitamin B-12 Oral Vitamin c Oral Vitamin D-3 Oral Warfarin Sodium Oral 9 mg , daily The source(s) of the original Home Medication information: Not obtained. The following Medications were given to the patient in the Emergency Department: Levaquin [IVPB] IVPB bolus 0, then 500 mg 100 mL/hr, administered: 06/12/2016 1:34:00 PM Dilaudid [IVP] IVP 1 mg, administered: 06/12/2016 2:52:00 PM The following Medications were prescribed to the patient: None.
--- NOTE | 2016-06-17 04:52 | ED DISCHARGE INSTRUCTIONS ---
Patient: DAMI MEJIA General Instructions [facility] VisitID: [id number] [address] [place] [address] 60y, F Registration Date/Time: 06/12/2016 Acute urinary tract infection with cystitis. Morbid obesity (BMI >=40). Fatigue and generalized weakness, secondary to acute illness and chronic deconditioning. (Electronically signed by Eloina Miller MD 06/17/2016 4:51)
--- NOTE | 2016-06-17 12:29 | DIAGNOSTIC IMAGING REPORT ---
PROCEDURE: XR CHEST 1 VIEW INDICATION: PICC LINE PLACEMENT TECHNIQUE: Portable AP view 12:15 p.m. COMPARISON: None. FINDINGS: Normal sized heart with post median sternotomy changes. Low lung volumes accentuates heart size and central vasculature PICC line tip is in the right atrium. Recommend withdrawing the catheter 4 cm. IMPRESSION: 1. PICC line tip is in the right atrium. Recommend withdrawing the catheter 4 cm. 2. Results called to Deirdre at 0836
--- NOTE | 2016-06-17 14:52 | Progress Note ---
Subjective General Pt. had some bleeding yesterday requiring epinephrine packing. Her INR reportedly is no longer very high and the bleeding has stopped. The pt. is her baseline, she had some pain with dressing changes. Physical Exam Vital Signs / I&Os Vital Signs Date Time Temp Pulse Resp B/P Pulse O2 O2 Flow FiO2 Ox Delivery Rate 06/17 0815 98.1 74 20 142/60 93 03/03 0607 98.1 73 20 148/65 98 Room Air 03/03 0542 74 150/57 96 03/03 0531 98.2 88 20 151/68 97 03/03 0459 98.2 86 20 148/67 95 03/03 0430 98.1 86 20 140/65 96 03/03 0330 98.1 87 20 143/52 95 Room Air 03/03 0300 98.2 72 22 136/50 93 Room Air 03/03 0245 98.1 73 20 130/51 97 Room Air 03/03 0240 98.2 87 20 140/51 98 Room Air 03/02 2345 Room Air 03/02 2220 98.1 77 20 141/61 97 Room Air 03/02 1957 98.1 82 20 143/60 94 Room Air 03/02 1834 98.4 79 20 129/59 96 Room Air 03/02 1550 Room Air 2.0 03/02 1500 98.8 92 20 146/57 95 Room Air I&O 03/02 0800 03/02 1600 03/03 0000 Intake Total 0 270 700 Output Total 1350 1050 825 Balance -1350 -780 -125 General Appearance Moderate distress Skin The buttock surgical wound was cleaned out of organized clot and the flap was mobilized medially where some pus was trapped. Otherwise the foul anaerobic smell is gone and there does not appear to be progressive necrotizing infection. Assessment and Plan Problem List 1. Sacral decubitus ulcer Plan continue frequent debriding dressing I consulted and viewed the wound with Chantal De La Vega (wound care nurse) and it does not appear feabile to get a vac dreesing this close to the anus as there is no landing zone distally. Dr. Vega has added clindamycin.
--- NOTE | 2016-06-17 17:11 | Progress Note ---
Subjective General Note Date: June 17, 2016 Admission Date: June 14, 2016 Hospital Day: 5 PCP: None Status: Inpatient Advanced Directive: NO CODE Room: 208 Brief History: The patient is a 60-year-old white female with a significant past medical history of multiple sclerosis, hypertension, diabetes mellitus, who presented to [facility] emergency department on the day of admission secondary to complaints of generalized weakness nausea and vomiting. ER evaluation was consistent with UTI , bronchitis, and sacral decubitus ulcer. Secondary to the above, the patient was admitted by Ana Vang M.D. for further evaluation and treatment. For other history present illness, past medical history, family history, social history, review of systems, and admission physical examination please see the patient's history and physical examination and ER visit note in the patient's medical record. Subjective: Patient with persistent pain in sacral region but this improved over the past 24 hours. Patient underwent debridement yesterday with significant necrotic tissue. Persistent bleeding from site with mild degree. Patient requests: None Medications and Allergies Medications Current Medications Sig/Lat[place] Start time Last Medication Dose Route Stop Time Status Admin Clarify Med Order See Dose 0830 06/18 0830 AC Insts (1) IV 06/18 0831 Sodium Chloride 500 ML ASDIRECTED 06/17 1545 AC IV Clindamycin 50 ML Q8HR 06/17 1500 AC 06/17 Phosphate/Dextrose IV 1555 Vancomycin HCl 1,500 MG Q12HR 06/17 0900 CAN Sodium Chloride 500 ML IV Vancomycin/Sodium 250 ML Q12HR 06/17 0900 AC 06/17 Chloride IV 0849 Clindamycin 50 ML Q8HR 06/16 2200 CAN Phosphate/Dextrose IV Vancomycin HCl/ 200 ML .[PER PHARMACY] 06/16 1815 CAN Dextrose IV Famotidine/Sodium 50 ML .ROUSTABOUT CREW PUSHER TO OR 06/16 1000 AC 06/16 Chloride IV 1011 Ondansetron HCl 4 MG .ROUSTABOUT CREW PUSHER TO OR 06/16 1000 AC 06/16 IV 1011 Famotidine/Sodium 50 ML .[ROUSTABOUT CREW PUSHER TO OR] 06/15 1845 AC Chloride IV Lactated Ringer's 1,000 ML .[ROUSTABOUT CREW PUSHER TO OR] 06/15 1845 AC IV Ferrous Sulfate 325 MG BIDWC 06/15 1830 AC 06/15 PO 1901 Albuterol/Ipratropium 3 ML RTQ6H 06/15 1400 AC 06/17 IN 1345 Ertapenem 1,000 MG 1300 06/15 1300 AC 06/17 Sodium Chloride 50 ML IV 1242 Albuterol Sulfate 2.5 MG RTQ3H PRN 06/14 1915 AC IN Zinc Sulfate 220 MG QAM 06/14 0900 AC 06/17 PO 0849 Clarify Med Order See Dose ASDIRECTED 06/13 1245 AC Insts (2) PO Ascorbic Acid 500 MG DAILY 06/13 0900 AC 06/17 PO 0849 Aspirin 81 MG DAILY 06/13 0900 AC 06/17 PO 0849 Calcitriol 0.25 MCG DAILY 06/13 0900 AC 06/17 PO 0849 Cholecalciferol 1,000 UNIT DAILY 06/13 0900 AC 06/17 PO 0849 Duloxetine HCl 30 MG DAILY 06/13 0900 AC 06/17 PO 0849 Insulin Glargine 15 UNITS DAILY 06/13 0900 AC 06/17 SC 0849 Oxybutynin Chloride 5 MG DAILY 06/13 0900 AC 06/17 PO 0849 Patient Own See Dose MoWeFr 06/13 0900 AC 06/17 Medication Insts (3) SC 0902 Senna 1 TAB DAILY 06/13 0900 AC 06/17 PO 0849 Clarify Med Order See Dose ASDIRECTED 06/13 0800 AC Insts (4) PO Clotrimazole See Dose QID 06/13 0600 AC 06/17 Insts (5) TOP 0638 Pantoprazole Sodium 40 MG DAILY@0600 06/13 0600 AC 06/17 Sesquihydrate PO 0618 Gabapentin 100 MG TID 06/12 2200 AC 06/17 PO 1331 Baclofen 10 MG BID 06/12 2100 AC 06/17 PO 0849 Bupropion HCl 100 MG BID 06/12 2100 AC 06/17 PO 0849 Atorvastatin Calcium 80 MG QPM 06/12 1800 AC 06/16 PO 1737 Furosemide 40 MG DIUB 06/12 1800 AC 06/17 IV 0618 Metoprolol Tartrate 25 MG DAILY 06/12 1800 AC 06/17 PO 0849 Insulin Human Lispro See Dose ACHS 06/12 1630 AC 06/17 Insts (6) SC 1242 Acetaminophen 650 MG Q6H PRN 06/12 1400 AC 06/16 PO 2023 Docusate Sodium 250 MG BID PRN 06/12 1400 AC 06/16 PO 0020 Hydromorphone HCl 1 MG Q1H PRN 06/12 1400 AC 06/17 IV 1331 Ondansetron HCl 4 MG Q6H PRN 06/12 1400 AC 06/17 IV 0633 Dose Instructions: (1)Clarify Med Order: VANCOMYCIN TROUGH (2)Clarify Med Order: WARFARIN PER PHARM (3)Patient Own Medication: GLATIRAMER 40 MG (4)Clarify Med Order: PT MEDS IN PSB (OMNICELL) (5)Clotrimazole: APPLY TO AFFECTED AREA (6)Insulin Human Lispro: LOW DOSE SLIDING SCALE Allergies Coded Allergies: Clonazepam (06/12/16) Ibuprofen (06/12/16) Lactose Intolerance (GI) (06/13/16) Physical Exam Vital Signs / I&Os Vital Signs Date Time Temp Pulse Resp B/P Pulse O2 O2 Flow FiO2 Ox Delivery Rate 06/17 1456 98.4 78 18 124/72 94 Room Air / 0815 98.1 74 20 142/60 93 / 0800 Room Air / 0607 98.1 73 20 148/65 98 Room Air / 0542 74 150/57 96 / 0531 98.2 88 20 151/68 97 03/03 0459 98.2 86 20 148/67 95 03/03 0430 98.1 86 20 140/65 96 /03 0330 98.1 87 20 143/52 95 Room Air 03/ 0300 98.2 72 22 136/50 93 Room Air / 0245 98.1 73 20 130/51 97 Room Air / 0240 98.2 87 20 140/51 98 Room Air / 2345 Room Air 06/16 2220 98.1 77 20 141/61 97 Room Air / 1957 98.1 82 20 143/60 94 Room Air / 1834 98.4 79 20 129/59 96 Room Air I&O 06/17 0000 02 1600 06/16 0800 Intake Total 700 270 0 Output Total 825 1050 1350 Balance -125 -780 -1350 General Appearance Alert, Oriented X3, Cooperative, No acute distress Lungs Clear to auscultation, Normal air movement Cardiovascular Normal S1 and S2, irregular rhythm, valve click unchanged Abdomen Normal bowel sounds, Soft, No tenderness Extremities No cyanosis, No clubbing Skin sacral decubiti with blood clots noted. No significant surrounding erythema. Psych/Mental Status Mental status normal, Mood normal LAB Results Laboratory Tests 06/17 06/17 06/17 06/16 1000 0710 0710 2020 Chemistry Plasma Sodium (136 - 145 mmol/L) 141 Plasma Potassium (3.5 - 5.1 mmol/L) 3.2 Plasma Chloride (98 - 107 mmol/L) 106 CO2 (Enzymatic) (21 - 32 mmol/L) 30 BUN (7 - 18 mg/dL) 27 Creatinine (0.6 - 1.3 mg/dL) 1.0 Est GFR ( Amer) (mL/min) >60 Est GFR (Non-Af Amer) (mL/min) >60 Glucose (70 - 110 mg/dL) 177 Plasma Calcium (8.5 - 10.1 mg/dL) 8.2 Prealbumin Pending Coagulation INR (0.8 - 1.2) 4.2 5.9 Hematology WBC (4.5 - 11.5 K/uL) 8.8 10.1 RBC (4.00 - 5.20 M/uL) 2.50 2.57 Hgb (12.0 - 16.0 gm/dL) 7.9 7.4 7.5 Hct (36.0 - 46.0 %) 24.3 22.9 23.7 MCV (80 - 100 fL) 92 92 MCH (26 - 34 pg) 30 29 RDW (11.6 - 14.8 %) 14.3 14.2 Neut % (Auto) (50 - 75 %) 66 79 Lymph % (Auto) (25 - 40 %) 11 10 [place] % (Auto) (3 - 14 %) 2 6 Eos % (Auto) (0 - 4 %) 1 2 Baso % (Auto) (0 - 2 %) 0 1 Band Neutrophils % (0 - 8 %) 20 2 Metamyelocytes % (0 - 1 %) 0 0 Myelocytes (0 - 1 %) 0 0 Other Cell Type 0 0 Plt Count, EDTA (150 - 400 K/uL) 264 404 RBC Morphology (4046 A) NORMOCYTIC Hypochromic-Microcytic 1+ Anisocytosis (manual) 1+ PUBS MCHC (31 - 37 g/dL) 32 32 06/16 Coagulation INR Cancelled Hematology Hgb Cancelled Hct Cancelled Assessment and Plan Problem List 1. Sacral decubitus ulcer Plan -Patient status post debridement -Findings of necrotizing fasciitis at time of debridement -Follow per general surgery-Dr. Viramontes for ongoing debridement if necessary -Vancomycin, ertapenem, clindamycin. 2. CHF (congestive heart failure) Plan -Patient with history of CHF -Echocardiogram shows normal left ventricular function with mitral valve prosthesis but no evidence of significant stenosis/regurg -Continue present therapy -No evidence of decompensated CHF at this time -Low-salt diet -Monitor 3. Diabetes Plan -Blood sugar mildly elevated -Fasting blood sugar 177 mg/dL -We'll increase Lantus to 20 units subcutaneous daily -Monitor 4. Chronic pain Plan -Stable -No change in pain management 5. UTI (urinary tract infection) Plan -Urine culture positive for Klebsiella pneumoniae -ESBL -Continue ertapenem 6. Iron deficiency anemia Status Acute Onset Date Unknown Plan -Findings consistent with iron deficiency anemia -Ferrous sulfate 325 mg by mouth twice a day -Consider IV iron secondary to malabsorption -Patient received 1 unit packed RBCs secondary to iron deficiency/blood loss anemia. -Monitor 7. Chronic anticoagulation Status Chronic Onset Date Unknown Plan -INR remains elevated -Hold Coumadin -Monitor -Patient given fresh frozen plasma secondary to mild bleeding status post debridement sacral decubitus. 8. Necrotizing fasciitis Status Acute Onset Date Unknown Plan -Patient with findings of necrotizing fasciitis at time of surgical decubitus debridement -Symptoms improved, reevaluated by Dr. Viramontes today no debridement needed -Continue antimicrobial therapy with ertapenem, clindamycin, and vancomycin. -Await wound cultures 9. Mitral valve disease Status Chronic Onset Date Unknown Plan Current status: Fair, unstable Anticipated discharge date: Anticipated discharge in 3-4 days Anticipated discharge placement: [facility] facility Patient care time: Time spent in chart review, patient interview, physical exam, CPOE, and care documentation: 35 minutes Visit to patient today: 1 Complexity of care: High E&M Codes Rounding: Inpt-High/[id number]
[2016-06-18 03:05] VITALS: BP 149/63
[2016-06-18 08:06] VITALS: BP 159/52
--- NOTE | 2016-06-18 08:17 | Progress Note ---
Subjective General Note Date: June 18, 2016 Admission Date: June 14, 2016 Hospital Day: 6 PCP: None Status: Inpatient Advanced Directive: NO CODE Room: 208 Brief History: The patient is a 60-year-old white female with a significant past medical history of multiple sclerosis, hypertension, diabetes mellitus, who presented to [facility] emergency department on the day of admission secondary to complaints of generalized weakness nausea and vomiting. ER evaluation was consistent with UTI , bronchitis, and sacral decubitus ulcer. Secondary to the above, the patient was admitted by Ana Vang M.D. for further evaluation and treatment. For other history present illness, past medical history, family history, social history, review of systems, and admission physical examination please see the patient's history and physical examination and ER visit note in the patient's medical record. Subjective: The patient states she is doing better today. Pain improved. Denies shortness of breath. Mild nausea which is chronic for the patient and unchanged Patient requests: None Medications and Allergies Medications Current Medications Sig/Latonia Start time Last Medication Dose Route Stop Time Status Admin Insulin Glargine 20 UNITS DAILY 06/18 09 AC SC Clarify Med Order See Dose 0830 06/18 0830 AC Insts (1) IV 06/18 0831 Phytonadione 1 MG 0830 06/18 0830 AC PO 06/18 1000 Sodium Chloride 500 ML ASDIRECTED 06/17 1545 AC 06/17 IV 203 Clindamycin 50 ML Q8HR 06/17 1500 AC 06/18 Phosphate/Dextrose IV 0601 Vancomycin/Sodium 250 ML Q12HR 06/17 0900 AC 06/17 Chloride IV 2023 Ferrous Sulfate 325 MG BIDWC 06/15 1830 AC 06/15 PO 1901 Albuterol/Ipratropium 3 ML RTQ6H 06/15 1400 AC 06/17 IN 1936 Ertapenem 1,000 MG 1300 06/15 1300 AC 06/17 Sodium Chloride 50 ML IV 1242 Albuterol Sulfate 2.5 MG RTQ3H PRN 06/14 1915 AC IN Zinc Sulfate 220 MG QAM 06/14 0900 AC 06/17 PO 0849 Clarify Med Order See Dose ASDIRECTED 06/13 1245 AC Insts (2) PO Ascorbic Acid 500 MG DAILY 06/13 0900 AC 06/17 PO 0849 Aspirin 81 MG DAILY 06/13 0900 AC 06/17 PO 0849 Calcitriol 0.25 MCG DAILY 06/13 0900 AC 06/17 PO 0849 Cholecalciferol 1,000 UNIT DAILY 06/13 0900 AC 06/17 PO 0849 Duloxetine HCl 30 MG DAILY 06/13 0900 AC 06/17 PO 0849 Oxybutynin Chloride 5 MG DAILY 06/13 0900 AC 06/17 PO 0849 Patient Own See Dose MoWeFr 06/13 0900 AC 06/17 Medication Insts (3) SC 0902 Senna 1 TAB DAILY 06/13 0900 AC 06/17 PO 0849 Clarify Med Order See Dose ASDIRECTED 06/13 0800 AC Insts (4) PO Clotrimazole See Dose QID 06/13 0600 AC 06/17 Insts (5) TOP 0638 Pantoprazole Sodium 40 MG DAILY@0600 06/13 0600 AC 06/18 Sesquihydrate PO 0550 Gabapentin 100 MG TID 06/12 2200 AC 06/18 PO 0550 Baclofen 10 MG BID 06/12 2100 AC 06/17 PO 202 Bupropion HCl 100 MG BID 06/12 2100 AC 06/17 PO 2023 Atorvastatin Calcium 80 MG QPM 06/12 1800 AC 06/17 PO 1744 Furosemide 40 MG DIUB 06/12 1800 AC 06/18 IV 0546 Metoprolol Tartrate 25 MG DAILY 06/12 1800 AC 06/17 PO 0849 Insulin Human Lispro See Dose ACHS 06/12 1630 AC 06/17 Insts (6) SC 2200 Acetaminophen 650 MG Q6H PRN 06/12 1400 AC 06/16 PO 2023 Docusate Sodium 250 MG BID PRN 06/12 1400 AC 06/16 PO 0020 Hydromorphone HCl 1 MG Q1H PRN 06/12 1400 AC 06/18 IV 0654 Ondansetron HCl 4 MG Q6H PRN 06/12 1400 AC 06/18 IV 0654 Dose Instructions: (1)Clarify Med Order: VANCOMYCIN TROUGH (2)Clarify Med Order: WARFARIN PER PHARM (3)Patient Own Medication: GLATIRAMER 40 MG (4)Clarify Med Order: PT MEDS IN PSB (OMNICELL) (5)Clotrimazole: APPLY TO AFFECTED AREA (6)Insulin Human Lispro: LOW DOSE SLIDING SCALE Allergies Coded Allergies: Clonazepam (06/12/16) Ibuprofen (06/12/16) Lactose Intolerance (GI) (06/13/16) Physical Exam Vital Signs / I&Os Vital Signs Date Time Temp Pulse Resp B/P Pulse O2 O2 Flow FiO2 Ox Delivery Rate 06/18 0806 98.4 78 16 159/52 95 Room Air 0.0 06/18 0305 98.8 78 16 149/63 97 Room Air 06/17 2244 98.1 89 16 145/75 93 CPAP 06/17 1912 Room Air 06/17 1705 98.8 72 16 155/59 95 Room Air 06/17 1456 98.4 78 18 124/72 94 Room Air I&O 06/18 0000 06/17 1600 06/17 0800 Intake Total 1366 1030 1165 Output Total 1250 900 375 Balance 116 130 790 General Appearance Alert, Oriented X3, Cooperative, No acute distress Lungs Scattered rhonchi, otherwise clear to auscultation Cardiovascular Regular rate and rhythm, Irregular rhythm, valve click unchanged Abdomen Normal bowel sounds, Soft, No tenderness Extremities No cyanosis, No clubbing Neurological exam unchanged Psych/Mental Status Mental status normal, Mood normal LAB Results Laboratory Tests 06/18 06/17 06/17 0400 2155 1000 Chemistry Plasma Sodium (136 - 145 mmol/L) 144 Plasma Potassium (3.5 - 5.1 mmol/L) 3.5 Plasma Chloride (98 - 107 mmol/L) 108 CO2 (Enzymatic) (21 - 32 mmol/L) 30 BUN (7 - 18 mg/dL) 23 Creatinine (0.6 - 1.3 mg/dL) 1.1 Est GFR ( Amer) (mL/min) >60 Est GFR (Non-Af Amer) (mL/min) 54.22 Glucose (70 - 110 mg/dL) 145 Plasma Calcium (8.5 - 10.1 mg/dL) 8.0 Coagulation INR (0.8 - 1.2) 5.3 Hematology WBC (4.5 - 11.5 K/uL) 8.7 RBC (4.00 - 5.20 M/uL) 2.52 Hgb (12.0 - 16.0 gm/dL) 7.4 7.7 7.9 Hct (36.0 - 46.0 %) 23.0 24.0 24.3 MCV (80 - 100 fL) 92 MCH (26 - 34 pg) 29 RDW (11.6 - 14.8 %) 14.8 Neut % (Auto) (50 - 75 %) 83.6 Lymph % (Auto) (25 - 40 %) 7.8 [place] % (Auto) (3 - 14 %) 6.5 Eos % (Auto) (0 - 4 %) 1.9 Baso % (Auto) (0 - 2 %) 0.2 Plt Count, EDTA (150 - 400 K/uL) 289 PUBS MCHC (31 - 37 g/dL) 32 Assessment and Plan Problem List 1. Sacral decubitus ulcer Plan -Patient with admission findings of sacral decubitus ulcer -Findings of necrotizing fasciitis -Status post debridement -Continue antimicrobials in the form of clindamycin, and ertapenem -DC vancomycin -Cultures only growing strep, gram-negative brittany at this time -Anaerobic cultures pending 2. CHF (congestive heart failure) Plan -Stable -Echocardiogram exam shows normal left ventricular function -Continue present therapy -Monitor -Low-salt diet 3. Diabetes Plan -Blood sugar improved -Fasting blood sugar 145 mg/dL -Lantus increased to 20 units daily this a.m. attempt for improved control -Monitor 4. Chronic pain Plan -Stable -Patient satisfied with current pain management 5. Iron deficiency anemia Status Acute Onset Date Unknown Plan -Patient with iron deficiency anemia -Refuses oral iron -Consider IV infusion prior to discharge -Monitor -H&H today 7.4/23.0, repeat this p.m. -No signs of bleeding at this time 6. Chronic anticoagulation Status Chronic Onset Date Unknown Plan -Patient with persistent supratherapeutic INR -Patient received vitamin K 1 mg by mouth this a.m. -Repeat INR 3.9 this p.m. -Target INR 2.5-3.5 secondary to mechanical heart valve. -Monitor 7. Mitral valve disease Status Chronic Onset Date Unknown Plan -See above -No further evaluation this time 8. Necrotizing fasciitis Status Acute Onset Date Unknown Plan -See above -Modify antimicrobial to ertapenem and clindamycin -Status improved -WBC normalized -Afebrile -Follow up by Surgery with further debridement as necessary Current status: Fair, improved Anticipated discharge date: Anticipated discharge 3-4 days with improved status Anticipated discharge placement: senior care facility Patient care time: Time spent in chart review, patient interview, physical exam, CPOE, and care documentation: 35 minutes Visit to patient today: 1 Complexity of care: Moderate-High E&M Codes Rounding: Inpt-High/[id number]
[2016-06-18 11:44] VITALS: BP 150/78
[2016-06-18 17:58] VITALS: BP 146/64
[2016-06-19 02:11] VITALS: BP 152/77
[2016-06-19 09:33] VITALS: BP 144/64
--- NOTE | 2016-06-19 11:24 | Progress Note ---
Subjective General No new complaints, pt. seen in her room with the dressing removed. Physical Exam Vital Signs / I&Os Vital Signs Date Time Temp Pulse Resp B/P Pulse O2 O2 Flow FiO2 Ox Delivery Rate 06/19 0945 Room Air 06/19 0933 98.6 83 15 144/64 93 Room Air 06/19 0211 98.6 86 16 152/77 95 Room Air 06/19 0205 Room Air 06/18 2020 Room Air 0.0 06/18 1758 98.4 72 16 146/64 96 06/18 1144 98.2 85 16 150/78 95 Room Air 0.0 I&O 06/18 0800 06/18 1600 06/19 0000 Intake Total 619 240 563 Output Total 400 1450 1000 Balance 219 -1210 -437 Other The wound was examined. There is no active purulence or cellulitis. There are some strands of fibrin and a few wisps of necrotic tissue. The wound is markedly improved. Assessment and Plan Problem List 1. Sacral decubitus ulcer Plan continue moist saline debriding dressings, treat based on cultures-review today.
[2016-06-19 13:58] VITALS: BP 138/54
--- NOTE | 2016-06-19 14:08 | Progress Note ---
Subjective General Note Date: June 19, 2016 Admission Date: June 14, 2016 Hospital Day: 7 PCP: None Status: Inpatient Advanced Directive: NO CODE Room: 208 Brief History: The patient is a 60-year-old white female with a significant past medical history of multiple sclerosis, hypertension, diabetes mellitus, who presented to [facility] emergency department on the day of admission secondary to complaints of generalized weakness nausea and vomiting. ER evaluation was consistent with UTI , bronchitis, and sacral decubitus ulcer. Secondary to the above, the patient was admitted by Ana Vang M.D. for further evaluation and treatment. For other history present illness, past medical history, family history, social history, review of systems, and admission physical examination please see the patient's history and physical examination and ER visit note in the patient's medical record. Subjective: The patient states she is doing better today. Pain improved. Denies shortness of breath. Mild nausea which is chronic for the patient and unchanged. Feel she can improve her nutritional intake. Patient requests: None Medications and Allergies Medications Current Medications Sig/[place] Start time Last Medication Dose Route Stop Time Status Admin Furosemide 40 MG DIUB 06/19 1800 AC PO Warfarin Sodium 5 MG 1400 06/19 1400 AC 06/19 PO 1355 Warfarin Sodium 4 MG 1400 06/19 1400 AC 06/19 PO 1355 Vancomycin/Sodium 250 ML Q18H 06/19 0300 CAN Chloride IV Oxycodone/ 1 TAB Q4H PRN 06/18 2045 AC 06/19 Acetaminophen PO 0635 Hydromorphone HCl 0.5 MG Q2H PRN 06/18 1300 AC IV Hydromorphone HCl 1 MG Q2H PRN 06/18 1300 AC 06/19 IV 0954 Ondansetron HCl See Dose Q6H PRN / 1245 AC 06/19 Insts (1) IV 0518 Insulin Glargine 20 UNITS DAILY 06/18 0900 AC 06/19 SC 0918 Sodium Chloride 500 ML ASDIRECTED 06/17 1545 AC 06/19 IV 0953 Clindamycin 50 ML Q8HR 06/17 1500 AC /05 Phosphate/Dextrose IV 1353 Albuterol/Ipratropium 3 ML RTQ6H 06/15 1400 AC 06/19 IN 1039 Ertapenem 1,000 MG 1300 06/15 1300 AC 06/19 Sodium Chloride 50 ML IV 1250 Albuterol Sulfate 2.5 MG RTQ3H PRN 06/14 1915 AC IN Zinc Sulfate 220 MG QAM 06/14 0900 AC 06/19 PO 0918 Clarify Med Order See Dose ASDIRECTED 06/13 1245 AC Insts (2) PO Ascorbic Acid 500 MG DAILY 06/13 0900 AC 06/19 PO 0918 Aspirin 81 MG DAILY 06/13 0900 AC 06/19 PO 0917 Calcitriol 0.25 MCG DAILY 06/13 0900 AC 06/19 PO 09 Cholecalciferol 1,000 UNIT DAILY 06/13 0900 AC 06/19 PO 0917 Duloxetine HCl 30 MG DAILY 06/13 0900 AC 06/19 PO 0917 Oxybutynin Chloride 5 MG DAILY 06/13 0900 AC 06/19 PO 0918 Patient Own See Dose MoWeFr 06/13 0900 AC 06/17 Medication Insts (3) SC 0902 Senna 1 TAB DAILY 06/13 0900 AC 06/19 PO 0918 Clarify Med Order See Dose ASDIRECTED 06/13 0800 AC Insts (4) PO Clotrimazole See Dose QID 06/13 0600 AC 06/18 Insts (5) TOP 1809 Pantoprazole Sodium 40 MG DAILY@0600 06/13 0600 AC 06/19 Sesquihydrate PO 0635 Gabapentin 100 MG TID 06/12 2200 AC 06/19 PO 1353 Baclofen 10 MG BID 06/12 2100 AC 06/19 PO 0917 Bupropion HCl 100 MG BID 06/12 2100 AC 06/19 PO 0917 Atorvastatin Calcium 80 MG QPM 06/12 1800 AC 06/18 PO 1808 Metoprolol Tartrate 25 MG DAILY 06/12 1800 AC 06/19 PO 0918 Insulin Human Lispro See Dose ACHS 06/12 1630 AC 06/19 Insts (6) SC 1212 Acetaminophen 650 MG Q6H PRN 06/12 1400 AC 06/16 PO 2023 Docusate Sodium 250 MG BID PRN 06/12 1400 AC 06/16 PO 0020 Dose Instructions: (1)Ondansetron HCl: 4 - 8 MG (2)Clarify Med Order: WARFARIN PER PHARM (3)Patient Own Medication: GLATIRAMER 40 MG (4)Clarify Med Order: PT MEDS IN PSB (OMNICELL) (5)Clotrimazole: APPLY TO AFFECTED AREA (6)Insulin Human Lispro: LOW DOSE SLIDING SCALE Allergies Coded Allergies: Clonazepam (06/12/16) Ibuprofen (06/12/16) Lactose Intolerance (GI) (06/13/16) Physical Exam Vital Signs / I&Os Vital Signs Date Time Temp Pulse Resp B/P Pulse O2 O2 Flow FiO2 Ox Delivery Rate 06/19 1358 98.1 85 16 138/54 97 Room Air 06/19 0945 Room Air 06/19 0933 98.6 83 15 144/64 93 Room Air 06/19 0211 98.6 86 16 152/77 95 Room Air 06/19 0205 Room Air 06/19 2019 Room Air 0.0 06/18 1758 98.4 72 16 146/64 96 I&O 06/19 0000 06/18 1600 06/18 0800 Intake Total 563 240 619 Output Total 1000 1450 400 Balance -437 -1210 219 General Appearance Alert, Oriented X3, Cooperative, No acute distress Lungs Clear to auscultation Cardiovascular Regular rate and rhythm, Normal S1 and S2, valve click unchanged Abdomen Normal bowel sounds, Soft, No tenderness Extremities No cyanosis, No clubbing, No edema Neurological Cranial nerves intact, unchanged exam Psych/Mental Status Mental status normal, Mood normal LAB Results Laboratory Tests 06/19 06/19 06/18 06/18 0755 0455 1555 1515 Chemistry Plasma Sodium (136 - 145 mmol/L) 146 Plasma Potassium (3.5 - 5.1 mmol/L) 3.3 Plasma Chloride (98 - 107 mmol/L) 107 CO2 (Enzymatic) (21 - 32 mmol/L) 30 BUN (7 - 18 mg/dL) 19 Creatinine (0.6 - 1.3 mg/dL) 0.9 Est GFR ( Amer) (mL/min) >60 Est GFR (Non-Af Amer) (mL/min) >60 Glucose (70 - 110 mg/dL) 129 Plasma Calcium (8.5 - 10.1 mg/dL) 7.6 Coagulation INR (0.8 - 1.2) 2.0 3.9 Hematology WBC (4.5 - 11.5 K/uL) 7.6 RBC (4.00 - 5.20 M/uL) 2.64 Hgb (12.0 - 16.0 gm/dL) 7.8 7.7 Hct (36.0 - 46.0 %) 24.0 23.8 MCV (80 - 100 fL) 91 MCH (26 - 34 pg) 29 RDW (11.6 - 14.8 %) 14.3 Neut % (Auto) (50 - 75 %) 77 Lymph % (Auto) (25 - 40 %) 8 [place] % (Auto) (3 - 14 %) 4 Eos % (Auto) (0 - 4 %) 3 Baso % (Auto) (0 - 2 %) 0 Band Neutrophils % (0 - 8 %) 7 Metamyelocytes % (0 - 1 %) 1 Myelocytes (0 - 1 %) 0 Other Cell Type 0 Plt Count, EDTA (150 - 400 K/uL) 318 Polychromasia 1+ Anisocytosis (manual) 1+ PUBS MCHC (31 - 37 g/dL) 32 Assessment and Plan Problem List 1. Sacral decubitus ulcer Plan -Stable -See surgical note -Continue present care -Follow-up will be required wound care clinic -Continue antimicrobial therapy -Wound cultures grew out strep, gram-negative brittany await final results -Continue ertapenem/clindamycin -Possible switch to oral medications once final results available on wound culture. 2. Necrotizing fasciitis Status Acute Onset Date Unknown Plan -See above -See surgical notes -Wound much improved but may require ongoing debridement per Dr. Viramontes verbal communication -No active necrotizing fasciitis. -Continue antimicrobials and follow per surgery 3. CHF (congestive heart failure) Plan -Patient carries a history of CHF -Stable status -Patient has no O2 requirements -Good diuresis -Patient states breathing much improved -Monitor -Continue Lasix 40 mg by mouth twice a day, KCl 20 mEq by mouth twice a day, Lopressor 25 mg by mouth daily, -Echocardiogram shows normal left ventricular function with EF of 65-70%. Mitral valve prosthesis present without significant stenosis or regurgitation. -No evidence of CHF at this time. 4. Diabetes Plan -Patient with history of diabetes mellitus -Currently treated with Lantus/lispro insulin -Blood glucose this a.m. 113 mg/dL -Blood sugar remained mildly elevated but improved -Monitor with adjustments in therapy as necessary 5. Chronic pain Plan -Stable -Patient states pain is well controlled -Continue present regimen -Monitor 6. Iron deficiency anemia Status Acute Onset Date Unknown Plan -Patient with findings of iron deficiency anemia -Patient states unable to take oral iron due to malabsorption -We'll request records of previous iron dextran administration -Iron administration prior to discharge 7. Chronic anticoagulation Status Chronic Onset Date Unknown Plan -Patient with history of chronic anticoagulation secondary to mechanical heart valve -INR 2.0 -Coumadin 9 mg by mouth daily -Daily INR -Possible need for bridging therapy -Monitor 8. Malnutrition Status Chronic Onset Date Unknown Plan -Patient with findings of malnutrition -Low albumin/prealbumin -Encouraged intake of 25 kcal per kilo per day, protein 2 g/kg per day -4 cans boost per day -Window Draper to recommend by mouth intake requirements to meet metabolic needs and wound healing. 9. Hypokalemia Status Acute Onset Date 06/19/16 Plan -Patient with findings of hypokalemia -Potassium 3.3 -KCl 20 mEq by mouth twice a day -Monitor 10. Mitral valve disease Status Chronic Onset Date Unknown Plan -See above -No further evaluation Current status: Fair, improved Anticipated discharge date: Anticipated discharge in 4 days with placement in [facility] facility with follow-up wound care Anticipated discharge placement: half-way facility Patient care time: Time spent in chart review, patient interview, physical exam, CPOE, and care documentation: 35 minutes Visit to patient today: 1 Complexity of care: High E&M Codes Rounding: Inpt-High/[id number]
[2016-06-19 18:28] VITALS: BP 147/70
[2016-06-19 18:40] VITALS: BP 137/74
[2016-06-19 22:30] VITALS: BP 121/63
[2016-06-20 01:46] VITALS: BP 152/75
[2016-06-20 06:52] VITALS: BP 143/64
[2016-06-20 11:26] VITALS: BP 131/65
[2016-06-20 14:25] VITALS: BP 125/55
[2016-06-20 18:12] VITALS: BP 116/52
--- NOTE | 2016-06-20 18:51 | Progress Note ---
Subjective General Note Date: June 20, 2016 Admission Date: June 14, 2016 Hospital Day: 8 PCP: None Status: Inpatient Advanced Directive: NO CODE Room: 208 Pt seen and examined, patient is stable and has no complaints at the moment. Patients pain is under control, however her appetite is suboptimal. Wound vac was placed on the patient today. Constitutional Denies: Fever, Chills, Sweats, Weakness, Malaise, Other. Eyes Denies: Pain, Vision Change, Conjunctival Inflammation, Eyelid Inflammation, Redness, Other. ENT Denies: Ear Pain, Ear Discharge, Nose Pain, Nasal Discharge, Nasal Congestion, Mouth Pain, Mouth Swelling, Throat Pain, Throat Swelling, Other. Respiratory Denies: Cough, Dry, SOB w/exertion, Wheezing, Hemoptysis, Pleuritic Pain, Sputum , Other. Cardiovascular Denies: Chest Pain, Palpitations, Orthopnea, PND, Edema, Light-headedness, Other. Gastrointestinal Nausea, Other (anorexia ). Genitourinary Denies: Dysuria, Frequency, Incontinence, Hematuria, Retention, Other. Musculoskeletal Back Pain. Denies: Neck Pain, Shoulder Pain, Arm Pain, Hand Pain, Leg Pain, Foot Pain, Other. Skin Denies: Rash, Lesions, Jaundice, Bruising, Other. Neurological Denies: Weakness, Numbness, Incoordination, Change in speech, Confusion, Seizures, Other. Physical Exam Vital Signs / I&Os Vital Signs Date Time Temp Pulse Resp B/P Pulse O2 O2 Flow FiO2 Ox Delivery Rate 06/20 1812 97.7 91 14 116/52 Room Air / 1600 Room Air / 1425 98.1 86 18 125/55 95 Room Air / 1126 98.1 72 20 131/65 95 Room Air 0.0 /06 0836 0.0 / 0652 98.1 79 18 143/64 92 Room Air 0.0 03/06 0146 98.1 75 20 152/75 96 Room Air 03/05 2230 98.2 80 20 121/63 93 Room Air 0.0 03/05 2115 Room Air I&O 03/ 0800 03/05 1600 03/ 0000 Intake Total 348 240 100 Output Total 425 1150 150 Balance -77 -910 -50 General Appearance Alert, Oriented X3, No acute distress HEENT Normal exam, Atraumatic, PERRLA, EOMI, Moist mucous membranes Lungs Normal exam, Clear to auscultation, Normal air movement Neck Supple, No JVD, No masses, No thyromegaly Cardiovascular Regular rate and rhythm, Normal S1 and S2, mitral valve prosthesis click Abdomen Soft, No guarding Extremities No edema, Normal pulses, No tenderness Skin - please refer to wound care note Neurological Normal speech, Sensation intact, Cranial nerves intact, Strength 5/ 5 x4 ext's LAB Results Laboratory Tests 06/20 06/20 0525 1430 Chemistry Plasma Sodium (136 - 145 mmol/L) 146 Plasma Potassium (3.5 - 5.1 mmol/L) 3.7 Plasma Chloride (98 - 107 mmol/L) 109 CO2 (Enzymatic) (21 - 32 mmol/L) 35 BUN (7 - 18 mg/dL) 18 Creatinine (0.6 - 1.3 mg/dL) 1.0 Est GFR ( Amer) (mL/min) >60 Est GFR (Non-Af Amer) (mL/min) >60 Glucose (70 - 110 mg/dL) 143 Plasma Calcium (8.5 - 10.1 mg/dL) 7.8 Coagulation INR (0.8 - 1.2) 1.7 Hematology WBC (4.5 - 11.5 K/uL) 7.6 RBC (4.00 - 5.20 M/uL) 2.62 Hgb (12.0 - 16.0 gm/dL) 7.7 Hct (36.0 - 46.0 %) 24.0 MCV (80 - 100 fL) 92 MCH (26 - 34 pg) 29 RDW (11.6 - 14.8 %) 14.3 Neut % (Auto) (50 - 75 %) 76.2 Lymph % (Auto) (25 - 40 %) 12.3 [place] % (Auto) (3 - 14 %) 7.4 Eos % (Auto) (0 - 4 %) 3.9 Baso % (Auto) (0 - 2 %) 0.2 Plt Count, EDTA (150 - 400 K/uL) 374 PUBS MCHC (31 - 37 g/dL) 32 Toxicology Vancomycin Trough Cancelled Assessment and Plan Problem List 1. Sacral decubitus ulcer Plan -Continue present care- wound vac placed today -Follow-up will be required wound care clinic -Continue antimicrobial therapy -Wound cultures grew out strep, gram-negative brittany await final results -Continue ertapenem/clindamycin- for esbl and nec fasc respectively 2. Necrotizing fasciitis Status Acute Onset Date Unknown Plan -Continue antimicrobials and follow per surgery - will continue with wound vac 3. CHF exacerbation Plan -Stable status -Patient has no O2 requirements -Good diuresis -Patient states breathing much improved -Monitor -Continue Lasix 40 mg by mouth twice a day, KCl 20 mEq by mouth twice a day, Lopressor 25 mg by mouth daily, -Echocardiogram shows normal left ventricular function with EF of 65-70%. Mitral valve prosthesis present without significant stenosis or regurgitation. 4. Diabetes Plan -Currently treated with Lantus/lispro insulin -Blood sugar remained mildly elevated -Monitor with adjustments in therapy as necessary 5. Chronic pain Plan -Patient states pain is well controlled -Continue present regimen 6. Iron deficiency anemia Status Acute Onset Date Unknown 7. Chronic anticoagulation Status Chronic Onset Date Unknown Plan -Patient with history of chronic anticoagulation secondary to mechanical heart valve -INR 2.0 -Coumadin 9 mg by mouth daily -Daily INR -given subtherapeutic inr and patients fluctuations will bridge with lovenox to avoid any emboli 8. Malnutrition Status Chronic Onset Date Unknown 9. Hypokalemia Status Acute Onset Date 06/19/16 Plan - stable 10. Mitral valve disease Status Chronic Onset Date Unknown Plan - will continue with coumadin and lovenox to bridge
[2016-06-20 23:29] VITALS: BP 144/72
[2016-06-21 01:24] VITALS: BP 153/56
[2016-06-21 08:57] VITALS: BP 155/66
[2016-06-21 10:42] VITALS: BP 156/80
[2016-06-21 14:46] VITALS: BP 156/77
--- NOTE | 2016-06-21 16:53 | Progress Note ---
Subjective General Patient seen and examined. Patient has no complaints at the moment, wounds were examined with nursing and the dressing sites are clean dry and intact. Patient otherwise was accepted to an assisted living facility however patient is hesitant to return there, will reassure patient and speak to family. Constitutional Denies: Fever, Chills, Sweats, Weakness, Malaise, Other. Eyes Denies: Pain, Vision Change, Conjunctival Inflammation, Eyelid Inflammation, Redness, Other. Respiratory Denies: Cough, Dry, SOB w/exertion, Wheezing, Hemoptysis, Pleuritic Pain, Sputum , Other. Cardiovascular Denies: Chest Pain, Palpitations, Orthopnea, PND, Edema, Light-headedness, Other. Gastrointestinal Nausea. Denies: Vomiting, Abdominal Pain, Diarrhea, Constipation, Melena, Hematochezia, Other. Musculoskeletal Denies: Neck Pain, Shoulder Pain, Arm Pain, Back Pain, Hand Pain, Leg Pain, Foot Pain, Other. Skin Denies: Rash, Lesions, Jaundice, Bruising, Other. Neurological Denies: Weakness, Numbness, Incoordination, Change in speech, Confusion, Seizures, Other. Physical Exam Vital Signs / I&Os Vital Signs Date Time Temp Pulse Resp B/P Pulse O2 O2 Flow FiO2 Ox Delivery Rate 06/21 1446 98.8 76 18 156/77 96 Room Air 06/21 1042 98.2 86 20 156/80 97 Room Air 0.0 06/21 0857 98.6 91 20 155/66 96 Room Air 0.0 / 0124 98.8 87 16 153/56 94 Room Air 06/20 2329 98.4 81 16 144/72 92 Room Air 06/20 2100 Room Air 06/20 1812 97.7 91 14 116/52 Room Air I&O 06/20 0800 / 1600 06/21 0000 Intake Total 402 240 390 Output Total 675 1000 800 Balance -273 -760 -410 General Appearance Alert, Oriented X3, Cooperative, No acute distress HEENT Normal exam, Atraumatic, Moist mucous membranes Lungs Clear to auscultation, Normal air movement Cardiovascular Regular rate and rhythm, Normal S1 and S2, No murmurs, gallops, rubs Abdomen Soft, No tenderness, No guarding, No rebound, No masses Extremities No clubbing, No edema, Normal pulses, No tenderness Skin - wound vac over sacral area has good seal and appropriate drainage - heel blister is stable with no evidence of worsening bleeding - thigh blister is improving, no erythema and no discharge noted Neurological Normal tone, Sensation intact, Cranial nerves intact, Strength 5/5 x4 ext's, No lateralizing signs LAB Results Laboratory Tests 03/07 0600 Chemistry Plasma Sodium (136 - 145 mmol/L) 146 Plasma Potassium (3.5 - 5.1 mmol/L) 3.9 Plasma Chloride (98 - 107 mmol/L) 109 CO2 (Enzymatic) (21 - 32 mmol/L) 33 BUN (7 - 18 mg/dL) 17 Creatinine (0.6 - 1.3 mg/dL) 1.0 Est GFR ( Amer) (mL/min) >60 Est GFR (Non-Af Amer) (mL/min) >60 Glucose (70 - 110 mg/dL) 131 Plasma Calcium (8.5 - 10.1 mg/dL) 7.9 Total Bilirubin (0.0 - 1.0 mg/dL) 0.2 AST (15 - 37 U/L) 22 ALT (12 - 78 U/L) 18 Alkaline Phosphatase (46 - 116 U/L) 84 Total Protein (6.4 - 8.2 g/dL) 4.8 Albumin (3.3 - 5.0 g/dL) 1.7 Coagulation INR (0.8 - 1.2) 3.1 Hematology WBC (4.5 - 11.5 K/uL) 7.4 RBC (4.00 - 5.20 M/uL) 2.60 Hgb (12.0 - 16.0 gm/dL) 7.7 Hct (36.0 - 46.0 %) 23.9 MCV (80 - 100 fL) 92 MCH (26 - 34 pg) 30 RDW (11.6 - 14.8 %) 14.1 Neut % (Auto) (50 - 75 %) 71.3 Lymph % (Auto) (25 - 40 %) 14.9 [place] % (Auto) (3 - 14 %) 7.5 Eos % (Auto) (0 - 4 %) 6.0 Baso % (Auto) (0 - 2 %) 0.3 Plt Count, EDTA (150 - 400 K/uL) 376 PUBS MCHC (31 - 37 g/dL) 32 Assessment and Plan Problem List 1. Sacral decubitus ulcer Plan -Continue present care- wound vac working well -Follow-up will be required wound care clinic -Continue antimicrobial therapy -Wound cultures grew out klebsiella and esbl -Continue ertapenem only day 6 juan 2. Necrotizing fasciitis Status Acute Onset Date Unknown Plan - evidence of nec fascitis on intial i&d - will c/w ertapenem - will c/w wound vac 3. CHF (congestive heart failure) Plan -Continue Lasix 40 mg by mouth twice a day, KCl 20 mEq by mouth twice a day, Lopressor 25 mg by mouth daily, 4. Diabetes Plan -Currently treated with Lantus/lispro insulin 5. Chronic anticoagulation Status Chronic Onset Date Unknown Plan -Patient with history of chronic anticoagulation secondary to mechanical heart valve -INR 3.1 -Coumadin 5 mg today -Daily INR 6. Malnutrition Status Chronic Onset Date Unknown Plan - making concerted effort to get patient to eat more - pt is making attempts
[2016-06-21 19:12] VITALS: BP 139/68
[2016-06-22 02:11] VITALS: BP 131/65
[2016-06-22 07:04] VITALS: BP 137/52
[2016-06-22 11:41] VITALS: BP 127/75
--- NOTE | 2016-06-22 12:49 | Progress Note ---
Subjective General Patient seen and examined this morning with wound care. Patient has no complaints overnight. Patient is scheduled to go to [facility]. Doctor to Doctor communicaiton was established and patients care will be resumed upon arrival. Constitutional Denies: Fever, Chills, Sweats, Weakness, Malaise, Other. Eyes Denies: Pain, Vision Change, Conjunctival Inflammation, Eyelid Inflammation, Redness, Other. ENT Denies: Ear Pain, Ear Discharge, Nose Pain, Nasal Discharge, Nasal Congestion, Mouth Pain, Mouth Swelling, Throat Pain, Throat Swelling, Other. Respiratory Denies: Cough, Dry, SOB w/exertion, Wheezing, Hemoptysis, Pleuritic Pain, Sputum , Other. Cardiovascular Denies: Chest Pain, Palpitations, Orthopnea, PND, Edema, Light-headedness, Other. Gastrointestinal Denies: Nausea, Vomiting, Abdominal Pain, Diarrhea, Constipation, Melena, Hematochezia, Other. Genitourinary Denies: Dysuria, Frequency, Incontinence, Hematuria, Retention, Other. Musculoskeletal Denies: Neck Pain, Shoulder Pain, Arm Pain, Back Pain, Hand Pain, Leg Pain, Foot Pain, Other. Skin Other (multiple wounds ). Neurological Denies: Weakness, Numbness, Incoordination, Change in speech, Confusion, Seizures, Other. Physical Exam Vital Signs / I&Os Vital Signs Date Time Temp Pulse Resp B/P Pulse O2 O2 Flow FiO2 Ox Delivery Rate 06/22 1141 97.0 84 20 127/75 97 Room Air 06/22 0704 98.4 88 16 137/52 97 Room Air 0.0 06/22 0211 99.1 82 16 131/65 93 Room Air 06/21 2100 0.0 06/21 2000 Room Air 06/21 1912 99.1 90 18 139/68 91 Room Air 06/21 1446 98.8 76 18 156/77 96 Room Air I&O 06/21 0800 06/21 1600 08 0000 Intake Total 754 1500 Output Total 1300 1200 1200 Balance -546 -1200 300 General Appearance Alert, Oriented X3, No acute distress HEENT Atraumatic, PERRLA, Moist mucous membranes Lungs Clear to auscultation, Normal air movement Neck No masses, No thyromegaly, No lymphadenopathy Cardiovascular Regular rate and rhythm, Normal S1 and S2, No murmurs, gallops, rubs Abdomen Soft, No tenderness, No guarding, No rebound, No masses, No hepatosplenomegaly Extremities No edema, Normal pulses, No tenderness, - wound on heel is stable with no evidence of enlargement or increased fluctuation Skin - sacral wound is improving, good granulation tissue present, wound vac will be placed on Neurological Normal speech, Normal tone, Cranial nerves intact, No lateralizing signs LAB Results Laboratory Tests 06/22 0540 Coagulation INR (0.8 - 1.2) 3.0 Assessment and Plan Problem List 1. Sacral decubitus ulcer Plan -Continue present care- wound vac working well -Will dc to SNF -Continue antimicrobial therapy -Wound cultures grew out klebsiella and esbl -Continue ertapenem only day 7 currently, will extend for 3 more days definitely , continuation is dependent on the recieving facility 2. Necrotizing fasciitis Status Acute Onset Date Unknown Plan - evidence of nec fascitis on intial i&d - will c/w ertapenem - will c/w wound vac 3. CHF (congestive heart failure) Plan -Continue Lasix 40 mg by mouth twice a day, KCl 20 mEq by mouth twice a day, Lopressor 25 mg by mouth daily, 4. Diabetes Plan -Currently treated with Lantus/lispro insulin 5. Malnutrition Status Chronic Onset Date Unknown Plan - making concerted effort to get patient to eat more - pt is making attempts - accepting facility will continue with encouraging increased po intake 6. Chronic anticoagulation Status Chronic Onset Date Unknown Plan -Patient with history of chronic anticoagulation secondary to mechanical heart valve -INR 3.0 -Coumadin 5 mg today -Daily INR
--- NOTE | 2016-06-22 13:04 | Discharge Summary ---
Discharge Summary Report Admit Date 06/12/16 Discharge Date 06/22/16 Admission Diagnosis infection of sacral ulcer Discharge Diagnosis sacral ulcer infection Brief History 60yoF w/ hx of MS, CHF, DM, HTN, and LLE amputation s/p complications after surgery for a femur fracture, who presents with 1 month of worsening generalized weakness as well as 1 week of inability to tolerate PO. Patient was discharged from rehab about a month ago, and had been doing pretty well with transfers. However, she now feels that her arms and legs are weak, and she is requiring basically full assistance with transfers. She had a respiratory infection a little over a week ago w/ nonproductive cough, and she had been feeling better. However, she then developed nausea and vomiting every time she tries to eat. She has not been able to keep anything down this week. She also notes occasional bladder "spasms" over the past few days, but no abdominal pain. She also endorses feeling more "puffy" lately, and says that this is usually the first sign of a CHF exacerbation. Hospital Course Patient was admitted for infected sacral wound. Patient underwent incison and drainage and was placed on antibiotics for possible necrotizing fasciitis. Patient additionally was seen to have a heel blister that was blood filled and circumfrential wound bilaterally from stockings. Patient was treated with antibiotic therapy for the sacrum which initially included ertapenum and clindamycin . Then patients antibiotics were tailored toward the organism growing, which was found to be Klebsiell and ESBL e coli. Pateints wound improved and a wound vac was subsequently placed. Patient at this time is sppropriate for discharge. Will discharge patient to rehab facility. Pt will follow up with rehab facility physician who i spoke to regading the care needed for the patient. Patient will lastly follow up with wound clinic upon discharge from SNF. General Appearance Alert, Oriented X3, No acute distress HEENT PERRLA, EOMI, Mucous membran moist/pink Cardiovascular Normal S1, Normal S2, No murmurs Abdomen Soft, No tenderness, No hepatospenomegaly, No masses Skin - sarcal wound, right heel blister, and bilateral circumfrential wounds on bilateral lower legs Discharge Instructions/Meds - dc to snf - resume care at that facility - orders and summary recommendations placed in chart - transition of care communicated to accepting facilty physician
[2016-06-22] MEDS ORDERED: INVANZ1 GM IU (13:29)
--- NOTE | 2016-06-22 13:32 | Provider's Discharge Care Plan ---
Problem, Goal, Plan Problem List 1. Sacral decubitus ulcer Instructions: - c/w ertapneum for 4 more days, increased length of anti- microbial therapy at the discretion of accepting facility - wound vac to sacral ulcer - follow up at wound care clinic at discharge 2. Necrotizing fasciitis Instructions: - c/w wound vac and antibioitics 3. CHF (congestive heart failure) Instructions: - continue with lasix 40 mg bid, kcl 20 meq daily, and lopressor 25 mg daily 4. Diabetes Instructions: - c/w lispro and lantus 5. Chronic anticoagulation Instructions: - chronic anticoagulation
== END 2016-06-22 13:42 | DRG 463 ==
LOC: ED SRH 09:40 → TRANS SRH 13:40 → ACUTE2 SRH 15:30
PROVIDERS: Surgery; ADMIT Emergency Medicine
PROC: 0JB90ZZ Excision of Buttock Subcutaneous Tissue and Fascia, Open Approach (ICD-10-PCS; 2016-06-13)
PROC: 0JB90ZZ Excision of Buttock Subcutaneous Tissue and Fascia, Open Approach (ICD-10-PCS; principal; 2016-06-16 11:00)
PROC: 02HV33Z Insertion of Infusion Device into Superior Vena Cava, Percutaneous Approach (ICD-10-PCS; 2016-06-17)
PROC: 30233K1 Transfusion of Nonautologous Frozen Plasma into Peripheral Vein, Percutaneous Approach (ICD-10-PCS; 2016-06-17)
PROC: 30233N1 Transfusion of Nonautologous Red Blood Cells into Peripheral Vein, Percutaneous Approach (ICD-10-PCS; 2016-06-17)
DX: M72.6 Necrotizing fasciitis (principal); L89.313 Pressure ulcer of right buttock, stage 3; L89.323 Pressure ulcer of left buttock, stage 3; B95.5 Unspecified streptococcus as the cause of diseases classified elsewhere; L76.22 Postprocedural hemorrhage of skin and subcutaneous tissue following other procedure; N39.0 Urinary tract infection, site not specified; B96.20 Unspecified Escherichia coli [E. coli] as the cause of diseases classified elsewhere; Z16.12 Extended spectrum beta lactamase (ESBL) resistance; B96.1 Klebsiella pneumoniae [K. pneumoniae] as the cause of diseases classified elsewhere; E46 Unspecified protein-calorie malnutrition; L89.619 Pressure ulcer of right heel, unspecified stage; J20.9 Acute bronchitis, unspecified; G35 Multiple sclerosis; E11.40 Type 2 diabetes mellitus with diabetic neuropathy, unspecified; I11.0 Hypertensive heart disease with heart failure; I50.9 Heart failure, unspecified; D50.9 Iron deficiency anemia, unspecified; E87.6 Hypokalemia; Z79.4 Long term (current) use of insulin; Z95.2 Presence of prosthetic heart valve; Z79.01 Long term (current) use of anticoagulants; Z89.512 Acquired absence of left leg below knee
CPT/HCPCS: 50004; 60001; 81312; 81460; 83463; 83475; 83742; 83751; 83754; 83766; 83845; 83875; 83876; 84204; 84351; 85241; 85243; 85244; 90001; 90004; 90047; 90074; 90098; 90100; 90101; 90131; 90148; 90155; 90309; 90469; 90470; 90616; 90617; 90627; 91004; 91162; 91163; 91295; 91320; 91504; 91505; 91544; 91583; 92132; 92610; 92668; 92670; 92720; 93140; 94060; 95059; 95061; 95140